=== PATIENT | male | born 1960 | race Caucasian/White ===

== ENCOUNTER 2024-11-28 22:09 | Emergency (ER) | payer OTHER, SELFPAY ==
--- NOTE | 2024-11-28 22:17 | ECG_ITS ---
APPROVED REPORT Exam: Resting ECG HR:96 bpm ECG Measurements Heart Rate 96 AXES WV 141 P 2 QRSd 130 QRS 126 QT 352 T 34 QTc 405 Conclusion Sinus rhythm Right bundle branch block Normal axis Electronically signed by : NAT CHENG, 11/29/2024 18:25:22
[2024-11-28 22:20] VITALS: BP 113/84; PULSE 99; RESP 16; TEMP 37.2; O2SAT 96; BMI 21.7
[2024-11-28 22:30] VITALS: BP 102/83; PULSE 99; RESP 14; O2SAT 97
--- NOTE | 2024-11-28 22:36 | CT_ITS ---
PROCEDURE INFORMATION: Exam: CT Head Without Contrast Exam date and time: 11/28/2024 10:49 PM Age: 64 years old Clinical indication: Altered mental status/memory loss; Additional info: AMS, confusion chronic ethanol abuse TECHNIQUE: Imaging protocol: Computed tomography of the head without contrast. Radiation optimization: All CT scans at this facility use at least one of these dose optimization techniques: automated exposure control; mA and/or kV adjustment per patient size (includes targeted exams where dose is matched to clinical indication); or iterative reconstruction. COMPARISON: No relevant prior studies available. FINDINGS: Brain: There is no acute intracranial hemorrhage, cerebral edema, or midline shift. Age-related cerebral and cerebellar volume loss is present. Mild chronic small vessel ischemic disease is noted in the cerebral white matter. Cerebral ventricles: No hydrocephalus. Paranasal sinuses: Mild mucosal thickening is noted in the right maxillary and ethmoid sinuses. Mastoid air cells: Visualized mastoid air cells are well aerated. Orbital cavities: The visualized orbits appear unremarkable. Bones: Unremarkable. No acute fracture. Soft tissues: A right forehead lipoma is present. IMPRESSION: No acute intracranial abnormality.
--- OUTSIDE RECORDS SUMMARY | 2024-11-28 22:43 | XMS_ITS | Clinical Summary ---
Author Organization [facility] Address [address] [place] [address] Phone Care Team Providers Care Finished Goods Planner Name Role Phone Unavailable Primary Care Provider Unavailabl e Allergies No known active allergies Medications * This document contains information received from the source organization and may not represent a complete record from that organization. No known medications Active Problems No known active problems Medical History Medical History Date Comments Stroke (HCC) Social History Tobacco Use Types Packs/Day Years Used Date Smoking Tobacco: Every Day Cigarettes 1.5 42.5 Started: 06/15/1982 Smokeless Tobacco: Never Tobacco Cessation:Ready to Q uit: Not Asked; Counseling Given: Not Answered Alcohol Use Standard Drinks/Week Comments Yes 0 (1 standard drink = 0.6 oz pur e alcohol) 6 pack of beer daily Sex and Gender Information Value Date Recorded Sex Assigned at Not on file Legal Sex Male 8:32 PM EST Gender Identity Not on file Sexual Orientation Not on file Obstetrics History Last Filed Vital Signs Vital Sign Reading Time Taken Comments Blood Pressure 129/91 04/21/2023 2:18 AM EST Pulse 100 04/21/2023 2:18 AM EST Temperature 36.7 C (98 F) 04/20/2023 7:22 PM EST Respiratory Rate 16 04/21/2023 2:18 AM EST Oxygen Saturation 99% 04/21/2023 2:18 AM EST Inhaled Oxygen Concentration - - Weight - - Height - - Body Mass Index - - Plan of Treatment Health Maintenance Due Date Last Done Comments Annual Wellness Exam 1965 Hepatitis C Screening 1980 Cologuard 2007 Colon Cancer Screening 2007 Colonoscopy 2007 FIT 2007 Sigmoidoscopy 2007 Virtual Colonography 2007 Low Dose Lung Cancer Screening 2012 Zoster (1 of 2) 2012 Pneumococcal Vaccine 50+ (2 of 2 - PCV) 08/13/2017 08/13/2016 COVID-19 Vaccine (2023-2 5 season) 2024 Influenza Vaccine (Season Ended) 2025 07/07/2017, 08/13/2016, 09/06/2015 DTaP/TDaP/Td (2 - Td or Tdap) 09/05/2025 09/06/2015 Hepatitis B Vaccine Aged Out No longe r eligible based on patient's age to complete this topic Meningococcal B Vaccine Aged Out No l onger eligible based on patient's age to complete this topic
[2024-11-28 22:46] LABS: Albumin Level 3.6 g/dl (3.5-5.0); Chloride 107 mmol/L (98-107); Potassium 4.3 mmoL/L (3.5-5.1); Sodium 137 mmol/L (136-145)
[2024-11-28 22:48] LABS: Basophils # 0.1 K/mm3 (0-0.2); Basophils % 1.1 % (0.1-2.0); Eosinophils # 0.1 Kmm3 (0.0-0.4); Eosinophils % 1.5 % (0.1-12.0); Hematocrit 53.5 % (42.0-52.0); Hemoglobin 17.6 g/dL (14.1-18.0); Immature Granulocytes # 0.01 10^3uL; Immature Granulocytes % 0.2 %; Lymphocytes # 2.1 K/mm3 (0.7-4.5); Lymphocytes % 39.8 % (10-50); Mean Corpuscular HGB Conc 32.9 g/dL (31.8-35.4); Mean Corpuscular Hemoglobin 31.5 pg (27.0-31.2); Mean Corpuscular Volume 95.7 fl (80-94); Mean Platelet Volume 9.5 fl (7.4-10.4); Monocytes # 0.7 K/mm3 (0.1-1.0); Monocytes % 12.3 % (1.7-9.3); Neutrophils # 2.4 K/mm3 (1.8-7.8); Neutrophils % 45.1 % (37.0-80.0); Nucleated Red Blood Cells # 0 10^3/uL; Nucleated Red Blood Cells % 0 %; Platelet Count 165 K/mm3 (142-424); Red Blood Count 5.59 M/mm3 (4.60-6.20); Red Cell Distribution Width 14.6 % (11.5-17.5); Red Cell Distribution Width-SD 50.9 fL; White Blood Count 5.4 K/mm3 (4.8-10.8)
[2024-11-28] MEDS: MVI, ADULT NO.1 WITH VIT K 10 ML, THIAMINE HCL 100 MG, MAGNESIUM SULFATE 2 GM in LACTAT... 500 ML IV (22:48)
[2024-11-28 22:49] LABS: Alanine Aminotransferase 17 U/L (12-78); Albumin/Globulin Ratio 1.3 (1.1-1.8); Alkaline Phosphatase 104 U/L (38-126); Anion Gap 7.3 mEq/L (5-15); Aspartate Amino Transferase 36 U/L (17-59); Bilirubin,Total 0.6 mg/dl (0.2-1.3); Blood Urea Nitrogen 3 mg/dl (9-20); Calcium 8.6 mg/dl (8.4-10.2); Carbon Dioxide 27 mmol/L (22.0-30.0); Creatinine Clearance Estimated 81 mL/min (50-200); Estimated Glomerular Filt Rate 86 ml/min (>60); GFR (African American) 103 ML/MIN (>60); Globulin 2.7 g/dL (1.3-3.2); Glucose 92 mg/dl (74-100); Total Protein,Serum 6.3 g/dl (6.3-8.2)
--- NOTE | 2024-11-28 22:50 | ED_ITS ---
Discharge Plan Disposition Patient Disposition: Home, Self-Care Condition: Good Prescriptions Prescriptions: New chlordiazepoxide HCl 25 mg capsule See Rx Instructions .ROUTE .COMPLEX Qty: 15 0RF Rx Instructions: Day 1: 50mg every 6 hours Day 2: 25mg every 6 hours Day 3: 25mg every 12 hours Day 4: 25mg at night (Rx 15x 25mg tabs) Max 300mg per 24 hours Referrals Follow up/Referrals: Provider,MD Mg [Primary Care Provider, Medical] - See instructions Keith Lange MD [Staff Physician, Family Practice] - See instructions Activity Restrictions/Add. Instructions Additional Instructions/Restrictions: Call Dr. Lange's office in order to establish care. Call your family doctor to establish care for this visit to the emergency department and schedule follow-up within 48 hours to ensure improvement. Take the prescribed medications as directed. Return to the ER with any new, worsening, or otherwise concerning symptoms. Clinical Impressions Clinical Impression: Acute confusion, Alcohol withdrawal Print Language Print Language: Salvadorean Discharge ED Provider: Munir Escobar General Adult HPI <Munir Escobar MD - Last Filed: 11/28/24 23:12> General Chief complaint: Weakness Stated complaint: Confused Time Seen by Provider: 11/28/24 22:17 Mode of Arrival: Ambulatory Source of Information: Patient and Relative Description of Symptoms (Recalled from ER Triage Doc. by RN): pt presents for evaluation of worsening confusion that began approx 3 hours ago. Family at the bedside reports recent bought of depression with alcohol use stating beer everyday reports no liquor use for approx 1 year. Pt reports CVA approx 5-6 years ago. Family states he hasn't bathed in 2 months I think he may have a UTI or is dehydrated Pt reports marijuana use with THC gummies taken from the local [email or web address] station approx 1400 today History of Present Illness HPI narrative: Please note that above description of symptoms, in this electronic medical record under categorization of recalled from ER triage doctor by RN are reflective of an initial nursing assessment, however, is not reflective of my full history and physical exam that was personally taken and clarified. Consequentially, this preceding description of symptoms, which may include the patient's categorized chief complaint in the EMR, do not reflect my personal clinical impression, and the ultimate description of history of present illness and patient stated complaints should be deferred to this section of the note. Unless stated otherwise or congruent with this section of the note, additional signs, symptoms, or incongruence should be interpreted as inaccurate with my clinical impression. Related Data Previous Rx's ?Medication ?Instructions ?Recorded chlordiazepoxide HCl 25 mg capsule See Rx Instructions .Route 11/28/24 .COMPLEX #15 caps Allergies Allergy/AdvReac Type Severity Reaction Status Date / Time No Known Allergies Allergy Verified 11/28/24 22:26 [facility] <Munir Escobar MD - Last Filed: 11/28/24 23:12> [facility] Disclaimer: The information contained in this section may have been updated after the patient was seen, as this information can be updated by other users. Social History (Updated 11/28/24 @ 23:12 by Munir Escobar MD) Smoking Status: Current every day smoker alcohol intake: current current occupational status: unemployed Travel in the last 8 weeks?: None Have you lived/traveled outside US in past 30 days?: No Contact w/someone who lives/traveled outside US past 30 days?: No Exposure to someone with infectious disease in past 14 days?: No Do you have a fever (greater than 100.4 F or 38 C)?: No Have you tested positive for COVID-19?: No Exposed to someone with COVID-19 in past 14 days?: No Do you have a sore throat?: No Do you have a cough?: No Do you have any weakness?: No Do you have any diarrhea?: No Are you experiencing any unusual bleeding?: No Do you have any muscle aches/pain?: No Do you have any abdominal pain?: No Are you experiencing loss of taste or smell?: No <Munir Escobar MD - Last Filed: 11/28/24 23:12> ROS Obtained: Yes All systems reviewed & no additional complaints except as documented Physical Exam <Munir Escobar MD - Last Filed: 11/28/24 23:12> General General appearance: alert, in no apparent distress and other (Chronically ill) Head Head exam: atraumatic and normocephalic Eye Eye exam: Present normal appearance, PERRL and EOMI Neck Neck exam: Present normal inspection, full ROM and trachea midline Respiratory Respiratory exam: Absent respiratory distress, wheezes, stridor, accessory muscle use or prolonged expiratory phase Cardiovascular Cardiovascular exam: Present regular rate, normal rhythm and other (Pulses equal symmetric in upper and lower extremities) Abdominal Exam Abdominal exam: Present soft; Absent distention, tenderness or pulsatile mass Extremities Exam Extremities exam: Absent edema Neurological Exam Neurological exam: Present alert, oriented X3 and CN II-XII intact; Absent motor sensory deficit Skin Skin exam: Present warm and dry; Absent diaphoresis or erythema Medical Decision Making <Munir Escobar MD - Last Filed: 11/28/24 23:12> Medical Records Medical records reviewed: Yes I reviewed the patient's medical records. Screening: Per USPSTF and CDC recommendations, given the prevalence of disease in our region, it is our hospital?s policy to screen for HIV and viral Hepatitis for all patients aged 18 and over and those with ongoing risk factors. Joseph Inquiry Pt receiving controlled substance: No Joseph was queried for this patient: No Vital Signs: 11/28/24 22:20 11/28/24 22:30 11/28/24 23:00 Temperature 98.9 F Temperature Source Oral Pulse Rate 99 H 91 H Pulse Rate [Radial] 99 H Respiratory Rate 16 14 13 Blood Pressure 102/83 L 113/76 Blood Pressure [Right Arm] 113/84 Blood Pressure Mean [Right Arm] 93 Blood Pressure Position [Right Arm] Sitting 02 Sat by Pulse Oximetry 96 97 97 Oxygen Delivery Method Room Air 11/28/24 23:30 11/29/24 00:00 11/29/24 00:19 Temperature 97.9 F Temperature Source Oral Pulse Rate 91 H 84 91 H Pulse Rate [Radial] Respiratory Rate 13 16 Blood Pressure 106/76 L 107/77 L 107/77 L Blood Pressure [Right Arm] Blood Pressure Mean [Right Arm] Blood Pressure Position [Right Arm] 02 Sat by Pulse Oximetry 95 96 Oxygen Delivery Method Room Air Lab Data Lab Results 11/28/24 22:19: WBC 5.4, RBC 5.59, Hgb 17.6, Hct 53.5 H, MCV 95.7 H, MCH 31.5 H, MCHC 32.9, RDW 14.6, Plt Count 165, MPV 9.5, Neut % (Auto) 45.1, Lymph % (Auto) 39.8, Person % (Auto) 12.3 H, Eos % (Auto) 1.5, Baso % (Auto) 1.1, Neut # (Auto) 2.4, Lymph # (Auto) 2.1, Person # (Auto) 0.7, Eos # (Auto) 0.1, Baso # (Auto) 0.1, Sodium 137, Potassium 4.3, Chloride 107, Carbon Dioxide 27, Anion Gap 7.3, BUN 3 L, Creatinine 0.90, Estimated Creat Clear 81, Estimated GFR 86, Est GFR ( Amer) 103, Glucose 92, Calcium 8.6, Total Bilirubin 0.6, AST 36, ALT 17, Alkaline Phosphatase 104, Total Protein 6.3, Albumin 3.6, Globulin 2.7, Albumin/Globulin Ratio 1.3, Plasma/Serum Alcohol 56 H 11/28/24 23:17: Urine Color Yellow, Urine Appearance Clear, Urine pH 6.0, Ur Specific [place] 1.015, Urine Protein Negative, Urine Glucose (UA) Negative, Urine Ketones Negative, Urine Blood Negative, Urine Nitrate Negative, Urine Bilirubin Negative, Urine Urobilinogen 0.2, Ur Leukocyte Esterase Negative, Ur Squamous Epith Cells Occasional 11/28/24 23:19: Urine Opiates Screen Negative, Urine Methadone Screen Positive H , Ur Barbituates Screen Negative, Ur Phencyclidine Scrn Negative, Ur Amphetamines Screen Negative, U Benzodiazepines Scrn Negative, Urine Cocaine Screen Negative, U Marijuana (THC) Screen Positive H 11/28/24 22:19 11/28/24 22:19 Orders (Tests/Meds): ED MEDICATIONS Discontinued Medications Generic Name Dose Route Start Last Admin Trade Name Freq PRN Reason Stop Dose Admin Chlordiazepoxide HCl 50 mg 11/28/24 22:38 11/28/24 22:43 Chlordiazepoxide 25mg Capsule PO 11/28/24 22:39 50 mg ONCE ONE Administration Multivitamins 10 ml/ Thiamine 1,015 mls @ 500 mls/hr 11/28/24 22:36 11/28/24 22:48 HCl 100 mg/ Magnesium Sulfate IV 11/29/24 00:37 500 mls/hr 2 gm/ Lactated Ringer's .Q2H2M ONE Administration ORDERS Category Date Time Status CT head/brain wo con Stat Cat Scan 11/28/24 22:36 Completed CBC w/Auto Diff [Complete Blood Count Auto Diff] Stat Lab 11/28/24 22:19 Completed CMP [Comprehensive Metabolic Panel] Stat Lab 11/28/24 22:19 Completed Ethanol [Ethyl Alcohol] Stat Lab 11/28/24 22:19 Completed UA [Urinalysis and Microscopic] Stat Lab 11/28/24 23:17 Completed UDS [Drug Screen,Urine] Stat Lab 11/28/24 23:19 Completed Medical Decision Narrative: 64-year-old male presenting with altered mental status intermittent. States that this has been going on since today. States examples such as putting something in the microwave, being sure that he cooked it, then being unable to find it. He is not sure if he took that or not or if it ever exists in the first place. states that he may be hallucinating as he states that he remembered taking out the trash, trash was never taken out. Also states that he remembered seeing someone on bikes riding by when he took the trash out, she thinks he is hallucinating. Patient denies responding to internal stimuli or seeing things that are not truly there. Not currently having any symptoms. States that he is also having troubles with his memory. No unilateral weakness, slurred speech, strokelike symptoms, chest pain, shortness of breath. States that he is ready to detox from alcohol. He typically drinks 318 packs of beer a week, has only had 2 beers in the last 24 hours. Does feel similar to withdrawal as he is try to taper himself off. Patient does state that he has been buying methadone off the street due to previous addiction and uses THC, otherwise has not used any other meds or drugs. History obtained with patient and significant other. On arrival, the clinically well. Mildly tachycardic, normotensive. Lungs are clear, cardiac exam without murmurs gallops or rubs. Neurologically intact including cranial nerves, cerebellar, motor and sensory exam. Psychiatric exam normal. Differential includes metabolic abnormality, endocrinologic abnormality, withdrawal, intoxication, among others. Initial labs independently interpreted, nonactionable CBC or chemistry. Ethanol level 56. EKG sinus rhythm 96 bpm with IA 141, QRS 130, QTc 405 with right bundle branch block morphology and no acute ischemic changes patient was given rally pack and Librium. CT head independently interpreted, no obvious intracranial hemorrhage or intracranial abnormality, prior to final read, reevaluation, and UA, care handed off to oncoming physician. Dam Worker disclaimer Much of this encounter note is an electronic welder plastic spoken language to printed text. Electronic welder plastic of the spoken language may permit errors. Although I have reviewed the note, some errors may still exist. <Miller Garcia MD - Last Filed: 11/29/24 00:48> Vital Signs: 11/28/24 22:20 11/28/24 22:30 11/28/24 23:00 Temperature 98.9 F Temperature Source Oral Pulse Rate 99 H 91 H Pulse Rate [Radial] 99 H Respiratory Rate 16 14 13 Blood Pressure 102/83 L 113/76 Blood Pressure [Right Arm] 113/84 Blood Pressure Mean [Right Arm] 93 Blood Pressure Position [Right Arm] Sitting 02 Sat by Pulse Oximetry 96 97 97 Oxygen Delivery Method Room Air 11/28/24 23:30 11/29/24 00:00 11/29/24 00:19 Temperature 97.9 F Temperature Source Oral Pulse Rate 91 H 84 91 H Pulse Rate [Radial] Respiratory Rate 13 16 Blood Pressure 106/76 L 107/77 L 107/77 L Blood Pressure [Right Arm] Blood Pressure Mean [Right Arm] Blood Pressure Position [Right Arm] 02 Sat by Pulse Oximetry 95 96 Oxygen Delivery Method Room Air Lab Data Lab Results 11/28/24 22:19: WBC 5.4, RBC 5.59, Hgb 17.6, Hct 53.5 H, MCV 95.7 H, MCH 31.5 H, MCHC 32.9, RDW 14.6, Plt Count 165, MPV 9.5, Neut % (Auto) 45.1, Lymph % (Auto) 39.8, Person % (Auto) 12.3 H, Eos % (Auto) 1.5, Baso % (Auto) 1.1, Neut # (Auto) 2.4, Lymph # (Auto) 2.1, Person # (Auto) 0.7, Eos # (Auto) 0.1, Baso # (Auto) 0.1, Sodium 137, Potassium 4.3, Chloride 107, Carbon Dioxide 27, Anion Gap 7.3, BUN 3 L, Creatinine 0.90, Estimated Creat Clear 81, Estimated GFR 86, Est GFR ( Amer) 103, Glucose 92, Calcium 8.6, Total Bilirubin 0.6, AST 36, ALT 17, Alkaline Phosphatase 104, Total Protein 6.3, Albumin 3.6, Globulin 2.7, Albumin/Globulin Ratio 1.3, Plasma/Serum Alcohol 56 H 11/28/24 23:17: Urine Color Yellow, Urine Appearance Clear, Urine pH 6.0, Ur Specific [place] 1.015, Urine Protein Negative, Urine Glucose (UA) Negative, Urine Ketones Negative, Urine Blood Negative, Urine Nitrate Negative, Urine Bilirubin Negative, Urine Urobilinogen 0.2, Ur Leukocyte Esterase Negative, Ur Squamous Epith Cells Occasional 11/28/24 23:19: Urine Opiates Screen Negative, Urine Methadone Screen Positive H , Ur Barbituates Screen Negative, Ur Phencyclidine Scrn Negative, Ur Amphetamines Screen Negative, U Benzodiazepines Scrn Negative, Urine Cocaine Screen Negative, U Marijuana (THC) Screen Positive H Orders (Tests/Meds): ED MEDICATIONS Discontinued Medications Generic Name Dose Route Start Last Admin Trade Name Freq PRN Reason Stop Dose Admin Chlordiazepoxide HCl 50 mg 11/28/24 22:38 11/28/24 22:43 Chlordiazepoxide 25mg Capsule PO 11/28/24 22:39 50 mg ONCE ONE Administration Multivitamins 10 ml/ Thiamine 1,015 mls @ 500 mls/hr 11/28/24 22:36 11/28/24 22:48 HCl 100 mg/ Magnesium Sulfate IV 11/29/24 00:37 500 mls/hr 2 gm/ Lactated Ringer's .Q2H2M ONE Administration ORDERS Category Date Time Status CT head/brain wo con Stat Cat Scan 11/28/24 22:36 Completed CBC w/Auto Diff [Complete Blood Count Auto Diff] Stat Lab 11/28/24 22:19 Completed CMP [Comprehensive Metabolic Panel] Stat Lab 11/28/24 22:19 Completed Ethanol [Ethyl Alcohol] Stat Lab 11/28/24 22:19 Completed UA [Urinalysis and Microscopic] Stat Lab 11/28/24 23:17 Completed UDS [Drug Screen,Urine] Stat Lab 11/28/24 23:19 Completed Medical Decision Narrative: 64-year-old male presenting with altered mental status intermittent. States that this has been going on since today. States examples such as putting something in the microwave, being sure that he cooked it, then being unable to find it. He is not sure if he took that or not or if it ever exists in the first place. states that he may be hallucinating as he states that he remembered taking out the trash, trash was never taken out. Also states that he remembered seeing someone on bikes riding by when he took the trash out, she thinks he is hallucinating. Patient denies responding to internal stimuli or seeing things that are not truly there. Not currently having any symptoms. States that he is also having troubles with his memory. No unilateral weakness, slurred speech, strokelike symptoms, chest pain, shortness of breath. States that he is ready to detox from alcohol. He typically drinks 318 packs of beer a week, has only had 2 beers in the last 24 hours. Does feel similar to withdrawal as he is try to taper himself off. Patient does state that he has been buying methadone off the street due to previous addiction and uses THC, otherwise has not used any other meds or drugs. History obtained with patient and significant other. On arrival, the clinically well. Mildly tachycardic, normotensive. Lungs are clear, cardiac exam without murmurs gallops or rubs. Neurologically intact including cranial nerves, cerebellar, motor and sensory exam. Psychiatric exam normal. Differential includes metabolic abnormality, endocrinologic abnormality, withdrawal, intoxication, among others. Initial labs independently interpreted, nonactionable CBC or chemistry. Ethanol level 56. EKG sinus rhythm 96 bpm with IA 141, QRS 130, QTc 405 with right bundle branch block morphology and no acute ischemic changes patient was given rally pack and Librium. CT head independently interpreted, no obvious intracranial hemorrhage or intracranial abnormality, prior to final read, reevaluation, and UA, care handed off to oncoming physician. Dam Worker disclaimer Much of this encounter note is an electronic welder plastic spoken language to printed text. Electronic welder plastic of the spoken language may permit errors. Although I have reviewed the note, some errors may still exist. Garcia: Upon my assumption of care patient is stable and resting comfortably. GCS 15. I agree with the assessment and plan from Dr. Escobar. CT does not demonstrate any acute intracranial abnormality. UA negative for findings of infection, UDS positive for methadone and THC to which patient admits. On reassessment he remains stable, mentating well, GCS 15 with no neurologic deficits. I spent extensive time counseling and educating the patient on alcohol and other illicit substance cessation as well as the risks of obtaining drugs like methadone from the street and Gummies in the gas station since they are unregulated. Patient understands and has a goal of quitting. Patient was referred to Dr. Lange for family medicine follow-up. Dr. Escobar had already prescribed Librium to the patient. He is tolerating oral intake and independently ambulatory through the ER. He is appropriate for discharge at this time. Patient was given instructions on symptomatic management, follow up instructions, and return precautions for the emergency department. Patient indicated understanding and was discharged in stable condition. Critical Care <Munir Escobar MD - Last Filed: 11/28/24 23:12> Critical Care Time Critical Care Time: No
--- NOTE | 2024-11-28 22:57 | PC.NURSE ---
pt resting in bed, NAD noted, RR even and non labored, skin pwd, side rails up x2, call light within reach
[2024-11-28 23:00] VITALS: BP 113/76; PULSE 91; RESP 13; O2SAT 97
[2024-11-28 23:01] LABS: Ethyl Alcohol 56 mg/dl (0-10)
[2024-11-28 23:23] LABS: Microscopic, Urine URINE MICROSCOPIC (MICROSCOPIC)
[2024-11-28 23:30] VITALS: BP 106/76; PULSE 91; O2SAT 95
[2024-11-28 23:50] LABS: Appearance,Urine CLEAR (Clear); Bilirubin,Urine Negative (Negative); Blood, Urine Negative (Negative); Color,Urine YELLOW (Yellow); Glucose,Urine (UA) Negative (Negative); Ketones,Urine Negative (Negative); Leukocyte Esterase,Urine Negative (Negative); Nitrate,Urine Negative (Negative); Protein,Urine Negative (Negative); Specific Gravity, Urine 1.015 (1.005-1.030); Urobilinogen,Urine 0.2 EU/dl (0.2)
[2024-11-29] VITALS: BP 107/77; PULSE 84; RESP 13; O2SAT 96
[2024-11-29] LABS: Barbiturates Screen,Urine Negative ng/ml (<200)
[2024-11-29 00:01] LABS: Benzodiazepines Screen,Urine Negative ng/ml (<200)
[2024-11-29 00:02] LABS: Amphetamine/Metha Screen,Urine Negative ng/ml (<1000); Cannabinoid Screen,Urine Positive ng/ml (<50)
[2024-11-29 00:03] LABS: Cocaine Screen,Urine Negative ng/ml (<300); Methadone Screen,Urine Positive ng/ml (<300)
[2024-11-29 00:04] LABS: Opiate Screen,Urine Negative ng/ml (<300)
[2024-11-29 00:05] LABS: Phencyclidine Screen,Urine Negative ng/ml (<25)
[2024-11-29 00:13] LABS: Squamous Epithelial Cell,Urine Occasional #/hpf (0-5)
[2024-11-29 00:19] VITALS: BP 107/77; PULSE 91; RESP 16; TEMP 36.6; O2SAT 95
== END 2024-11-29 00:32 | disposition home or self-care (01) ==
PROVIDERS: Emergency Provider Emergency Medicine
DX: F10.131 Alcohol abuse with withdrawal delirium (principal); R41.0 Disorientation, unspecified; F17.210 Nicotine dependence, cigarettes, uncomplicated
CPT/HCPCS: 70450; 80053; 80307; 80320; 81001; 85025; 93005; 96365; 96366; 99285; J3411; J3475; J7120

== ENCOUNTER 2024-12-07 15:57 | Outpatient (CLI) | payer OTHER, SELFPAY ==
--- OUTSIDE RECORDS SUMMARY | 2024-12-07 16:00 | XMS_ITS | Clinical Summary ---
Author Organization [facility] Address [address] [place] [address] Phone Care Team Providers Care Plsql Developer Name Role Phone Unavailable Primary Care Provider [...]
--- NOTE | 2024-12-07 16:01 | XR_ITS ---
FINAL REPORT CLINICAL HISTORY: pain FINDINGS: RIGHT KNEE Three views were obtained. There is no fracture or dislocation. The joint spaces appear normal. Note is made of underlying osteopenia. No soft tissue abnormality is identified. IMPRESSION: No acute process. Reviewed, Interpreted and Dictated by Willa Estevez MD Transcribed by Abigail Schwarz Authenticated and [facility]
--- NOTE | 2024-12-07 16:01 | XR_ITS ---
FINAL REPORT CLINICAL HISTORY: pain FINDINGS: LEFT KNEE Three views were obtained. There is no fracture or dislocation. The joint spaces appear normal. Note is made of underlying osteopenia. No soft tissue abnormality is identified. IMPRESSION: No acute process. Reviewed, Interpreted and Dictated by Willa Estevez MD Transcribed by Abigail Schwarz Authenticated and [facility]
--- NOTE | 2024-12-07 16:01 | XR_ITS ---
FINAL REPORT CLINICAL HISTORY: low back pain FINDINGS: LUMBAR SPINE Three views were obtained. There is no acute fracture. There is moderate diffuse degenerative disc disease. Mild facet arthropathy is identified. There is minimal retrolisthesis of L2 on 3 and L3 on 4. IMPRESSION: Moderate degenerative changes without acute fracture. Reviewed, Interpreted and Dictated by Willa Estevez MD Transcribed by Abigail Schwarz Authenticated and [facility]
[2024-12-07 18:17] LABS: Basophils # 0.1 K/mm3 (0-0.2); Basophils % 1.4 % (0.1-2.0); Eosinophils # 0.1 Kmm3 (0.0-0.4); Eosinophils % 1.4 % (0.1-12.0); Hemoglobin 17.9 g/dL (14.1-18.0); Immature Granulocytes # 0.01 10^3uL; Immature Granulocytes % 0.2 %; Lymphocytes # 1.7 K/mm3 (0.7-4.5); Lymphocytes % 30.7 % (10-50); Mean Corpuscular HGB Conc 32.5 g/dL (31.8-35.4); Mean Corpuscular Hemoglobin 30.7 pg (27.0-31.2); Mean Corpuscular Volume 94.2 fl (80-94); Mean Platelet Volume 10.2 fl (7.4-10.4); Monocytes # 0.8 K/mm3 (0.1-1.0); Monocytes % 14.3 % (1.7-9.3); Neutrophils # 2.9 K/mm3 (1.8-7.8); Nucleated Red Blood Cells # 0 10^3/uL; Nucleated Red Blood Cells % 0 %; Platelet Count 201 K/mm3 (142-424); Red Blood Count 5.84 M/mm3 (4.60-6.20); Red Cell Distribution Width 14.6 % (11.5-17.5); Red Cell Distribution Width-SD 50.7 fL; White Blood Count 5.5 K/mm3 (4.8-10.8)
[2024-12-07 19:09] LABS: Alanine Aminotransferase 24 U/L (12-78); Albumin Level 3.8 g/dl (3.5-5.0); Albumin/Globulin Ratio 1.4 (1.1-1.8); Alkaline Phosphatase 131 U/L (38-126); Anion Gap 10.3 mEq/L (5-15); Aspartate Amino Transferase 35 U/L (17-59); Bilirubin,Total 0.6 mg/dl (0.2-1.3); Blood Urea Nitrogen 5 mg/dl (9-20); Calcium 9.4 mg/dl (8.4-10.2); Carbon Dioxide 24 mmol/L (22.0-30.0); Chloride 102 mmol/L (98-107); Chol/HDL Ratio 1.9 (1-3.5); Cholesterol 199 mg/dl (140-200); Estimated Glomerular Filt Rate 137 ml/min (>60); GFR (African American) 165 ML/MIN (>60); Globulin 2.8 g/dL (1.3-3.2); Glucose 112 mg/dl (74-100); HDL Cholesterol 106 mg/dl (40-60); Potassium 4.3 mmoL/L (3.5-5.1); Sodium 132 mmol/L (136-145); Total Protein,Serum 6.6 g/dl (6.3-8.2); Triglycerides 109 mg/dl (30-150); VLDL Cholesterol 22 mg/dL (0-40)
[2024-12-07 19:20] LABS: Direct LDL Cholesterol 60.56 mg/dL (100-129)
[2024-12-07 19:31] LABS: Free Thyroxine Index 2.4 ug/dL (5.93-13.13); T4 (Thyroxine) 6.2 ug/dl (5.53-11.0); Triiodothryronine (T3) Uptake 39 % (23.5-40.5)
[2024-12-07 19:39] LABS: Prostate Specific Ag Screen 4.2 ng/ml (0.0-4.0)
[2024-12-07 19:45] LABS: Thyroid Stimulating Hormone 0.86 uIU/mL (0.465-4.68)
[2024-12-07 19:58] LABS: Vitamin B12 474 pg/mL (239-931)
[2024-12-07 20:40] LABS: HIV Combo NEGATIVE (Negative)
[2024-12-07 20:46] LABS: Hepatitis C Ab Qual. W/ RFX NEGATIVE (Negative)
[2024-12-09 10:29] LABS: Hepatitis B Surface Antigen Negative (Negative)
[2024-12-09 11:34] LABS: Testosterone,Total 574 ng/dL (264-916)
== END 2024-12-07 23:59 | disposition home or self-care (01) ==
LOC: RAD 15:58
PROVIDERS: PCP Family Medicine; Visit Provider Family Medicine
DX: Z00.00 Encounter for general adult medical examination without abnormal findings (principal); M47.816 Spondylosis without myelopathy or radiculopathy, lumbar region; M25.569 Pain in unspecified knee
CPT/HCPCS: 72100; 73562; 80053; 80061; 80074; 82607; 84403; 84436; 84443; 84479; 85025; 87340; 87389; G0103

== ENCOUNTER 2024-12-21 08:07 | Outpatient (CLI) | payer OTHER, SELFPAY ==
--- OUTSIDE RECORDS SUMMARY | 2024-12-21 08:10 | XMS_ITS | Clinical Summary ---
Author Organization [facility] Address [address] [place] [address] Phone Care Team Providers Care Wood Router Hand Name Role Phone Unavailable Primary Care Provider [...] 2 - PCV) 08/13/2017 08/13/2016 COVID-19 Vaccine ( - 2023-2 5 season) 2024 Influenza Vaccine (#1) 2025 8, 08/13/2016, 09/06/2015 DTaP/TDaP/Td (2 - Td or Tdap) 09/05/2025 09/06/2015 Hepatitis B Vaccine Aged Out No longe r eligible based on patient's age to complete this topic Meningococcal B Vaccine Aged Out No l onger eligible based on patient's age to complete this topic
--- NOTE | 2024-12-21 10:00 | US_ITS ---
FINAL REPORT CLINICAL HISTORY: food intolerance COMPARISON: None FINDINGS: Sonographic images of the right upper quadrant were obtained. The pancreas is partially obscured. There is fatty infiltration of the liver. The gallbladder appears normal without evidence of gallstones.There is no evidence of biliary ductal dilatation.The common duct measures 4mm. Limited images of the right kidney are unremarkable. IMPRESSION: Fatty infiltration of the liver, without evidence of gallstones or biliary ductal dilatation. Reviewed, Interpreted and Dictated by Les Rayo MD Transcribed by Jolie Beckford Authenticated and [facility]
== END 2024-12-21 23:59 | disposition home or self-care (01) ==
LOC: RAD 08:08
PROVIDERS: PCP Family Medicine; Visit Provider Family Medicine
DX: K76.0 Fatty (change of) liver, not elsewhere classified (principal); K21.9 Gastro-esophageal reflux disease without esophagitis; R09.A2 Foreign body sensation, throat; R10.11 Right upper quadrant pain
CPT/HCPCS: 76705

== ENCOUNTER 2025-01-03 14:29 | Outpatient (CLI) | payer OTHER, SELFPAY ==
--- OUTSIDE RECORDS SUMMARY | 2025-01-03 14:35 | XMS_ITS | Clinical Summary ---
Author Organization 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
--- NOTE | 2025-01-03 14:45 | MR_ITS ---
FINAL REPORT TECHNIQUE: Multiplanar MR, without and with gadolinium enhancement CLINICAL HISTORY: back pain WITH BILATERAL LEG PAIN , NUMBNESS AND TINGLINGS X 30 YEARS NO RECENT INJURY FINDINGS: Sagittal images show normal vertebral height. There is normal retrolisthesis of L2 on L3. Alignment is otherwise normal. Marrow signal pattern is unremarkable. L1-2: Mild annular disc bulge. L2-3: Mild annular disc bulge. L3-4: Moderate annular disc bulge with mild canal stenosis and mild bilateral neuroforaminal narrowing. L4-5: L5-S1: Mild annular disc bulge with moderate left and mild right neuroforaminal narrowing. IMPRESSION: Mild to moderate degenerative changes as above. No evidence of high-grade canal stenosis or enhancing mass. Reviewed, Interpreted and Dictated by Willa Estevez MD Transcribed by Alexandrea Jones Authenticated and . [facility]
[2025-01-03] MEDS: GADOTERIDOL INJ 20ML SYRINGE 13 ML IV (15:40)
[2025-01-03] MEDS: SODIUM CHLORIDE 0.9% 10ML SYR (RAD ONLY) 10 ML IV (15:40)
== END 2025-01-03 23:59 | disposition home or self-care (01) ==
LOC: RAD 14:29
PROVIDERS: PCP Family Medicine; Visit Provider Family Medicine
DX: M47.816 Spondylosis without myelopathy or radiculopathy, lumbar region (principal)
CPT/HCPCS: 72158; A9576

== ENCOUNTER 2025-01-04 11:56 | Day surgery (SDC) | payer OTHER, SELFPAY ==
[2025-01-04] MEDS: LACTATED RINGERS 1000ML 1,000 ML 50 ML IV (12:13)
[2025-01-04 12:19] VITALS: BMI 19.5
[2025-01-04 12:21] VITALS: BP 116/80; PULSE 97; RESP 18; TEMP 36.3; O2SAT 97
--- NOTE | 2025-01-04 12:24 | SUR.PREOP ---
pt reported to this rn that he took 1/2 of a 600mg gabapentin tablet this morning. medication not listed on home medication list nor on external medication list. this rn did add it to home list strictly d/t pt reporting taking this medication. pt stated he had a prescription but does not know what happened to it
--- NOTE | 2025-01-04 13:13 | EXP.HP ---
History of Present Illness *Admission Date: 01/04/25 *History of present illness: Mr. Yee is a 64-year-old gentleman with dysphagia who is here for diagnostic/therapeutic EGD. The examination is deemed medically necessary for EGD. The patient has been seen, interviewed and examined prior to the procedure by both myself and the anesthesia provider. [facility] Disclaimer: The information contained in this section may have been updated after the patient was seen, as this information can be updated by other users. Medical History Cerumen impaction Liver disease Erectile dysfunction Surgical History H/O uvulectomy History of tonsillectomy and adenoidectomy History of hernia surgery History of appendectomy Family History (Updated 01/04/25 @ 12:10 by Omaira Cordero RN) Other No significant family history Social History Smoking Status: Current every day smoker alcohol intake: current substance use type: other details: methadone, gabapentin current occupational status: unemployed Travel in the last 8 weeks?: None Have you lived/traveled outside US in past 30 days?: No Contact w/someone who lives/traveled outside US past 30 days?: No Exposure to someone with infectious disease in past 14 days?: No Do you have a fever (greater than 100.4 F or 38 C)?: No Have you tested positive for COVID-19?: No Exposed to someone with COVID-19 in past 14 days?: No Do you have a sore throat?: No Do you have a cough?: No Do you have any weakness?: No Do you have any diarrhea?: No Are you experiencing any unusual bleeding?: No Do you have any muscle aches/pain?: No Do you have any abdominal pain?: No Are you experiencing loss of taste or smell?: No Review of Systems Review of Systems Review of systems (narrative): Negative *Cardiovascular Comments: Negative *Gastrointestinal Comments: Negative *Genitourinary Comments: Negative *Musculoskeletal Comments: Negative *Neurologic Comments: Negative Meds Home Medications and Allergies Home Medications ?Medication ?Instructions ?Recorded ?Confirmed ?Type hydroxyzine HCl 50 mg tablet 50 mg PO TID PRN anxiety #30 tabs 06/25/25 07/23/25 Rx sucralfate 1 gram tablet (Carafate) 1 g PO TID #30 tabs 12/14/24 01/04/25 Rx buspirone 10 mg tablet 10 mg PO TID #90 tabs 12/27/24 01/04/25 Rx lamotrigine 25 mg tablet (Lamictal) 25 mg PO DAILY #42 tabs 12/27/24 01/04/25 Rx gabapentin 600 mg tablet 600 mg PO DAILY PRN Pain 01/04/25 01/04/25 History New Prescriptions to Start Prescriptions: Allergies Allergy/AdvReac Type Severity Reaction Status Date / Time No Known Allergies Allergy Verified 01/02/25 11:19 Exam Data for Last 24 hours Vital signs and Labs for Last 24 Hours: Temp Pulse Resp BP Pulse Ox O2 Del Method 97.4 F L 97 H 18 116/80 97 Room Air 01/04/25 12:21 01/04/25 12:21 01/04/25 12:21 01/04/25 12:21 01/04/25 12:21 01/04/25 12:21 I & O for Last 24 hours: Intake & Output 01/01/25 01/02/25 01/03/25 01/04/25 23:59 23:59 23:59 23:59 Weight 148 lb *Routine HEENT Exam Head: Present normocephalic Eye: Present EOMI and PERRL ENT: Present mucous membranes moist *Routine Neck Exam Neck: Present supple *Routine Respiratory Exam Respiratory: Present CTA bilaterally *Routine Cardiovascular Exam Cardiovascular: Present RRR *Routine Abdominal Exam Abdominal: Present soft and normoactive bowel sounds; Absent tenderness *Routine Rectal Exam Rectal:: deferred *Routine Genitalia Exam Genitalia:: deferred *Routine Extremities Exam Extremities: Absent cyanosis, clubbing or edema *Routine Skin Exam Skin: Present warm; Absent rash *Routine Neurological Exam Neurological: Present alert and oriented X3 Assessment and Plan *Assessment and plan (1) GERD (gastroesophageal reflux disease): Status: Acute Category: Medical Code(s): K21.9 - Gastro-esophageal reflux disease without esophagitis (2) Dysphagia: Status: Acute Category: Medical Code(s): R13.10 - Dysphagia, unspecified (3) Regurgitation of food: Status: Acute Category: Medical Code(s): R11.10 - Vomiting, unspecified (4) Heartburn: Status: Acute Category: Medical Code(s): R12 - Heartburn Plan A/P: 1. Dysphagia in setting of heartburn and reflux is the preprocedural diagnosis. The patient has had regurgitation of food. The patient will be anesthetized/sedated using MAC sedation. The patient has been seen and examined. Cardiac and lung assessment prior to the examination is stable. Proceed with planned EGD.
--- NOTE | 2025-01-04 13:15 | HMH.PROCNOTE ---
[facility] Procedure Note Date: 01/04/25 Time: 13:30 Procedure Note:: Upper Endoscopy Procedure Report: Esophagogastroduodenoscopy with cold biopsies and TTS balloon dilation Endoscopost: Rome Loya II, MD Referring Physician: INES Khan Date of Procedure: January 04, 2025 Equipment: Olympus GIF-1100 standard upper endoscope Sedation: MAC sedation Indications: Mr. Yee is a 64-year-old gentleman who is here for diagnostic/therapeutic upper endoscopy secondary to heartburn, reflux and dysphagia. The patient does state that he has had intermittent swallowing difficulties over the last 4 to 5 years but this has markedly worsened over the last 2 to 3 months. He has lost 30 pounds in the last 6 weeks. He did have a bout of hematemesis 3 weeks ago. He has odynophagia and dysphagia and often has to regurgitate food content. He does have intermittent heartburn and reflux for which he takes Carafate. He was taking omeprazole. He has never had an upper endoscopy. He does get some epigastric abdominal pain below the sternum but also has retrosternal pain with swallowing. Procedure: Prior to the procedure, a history and physical exam was performed, and patient's medications and allergies were reviewed. The risks, benefits and alternatives of the sedation and procedure were discussed with the patient. All questions were answered and informed consent was obtained. The patient was brought to the procedure room. Patient identification and proposed procedure were verified by the physician and the nurse. The patient was placed in a left lateral decubitus position and the scope was passed under direct vision. Throughout the procedure, the patient's blood pressure, pulse, and oxygen saturations were monitored continuously. The upper GI endoscopy was accomplished without difficulty. The patient tolerated the procedure well. Findings: The scope was passed directly into the upper esophagus and advanced to the third and fourth portion of the duodenum. A cold biopsy was taken from the 2nd/3rd portion of duodenum for the disaccharidase assay. The post bulbar duodenum, ampulla and duodenal bulb were normal with normal mucosa and conniventes. There was very mild peptic duodenitis of the duodenal bulb. The scope was withdrawn through a normal pylorus into the stomach. There is mild antral gastropathy and mild chronic gastritis of the proximal stomach. Cold biopsies were taken from the lesser curvature to rule out H. pylori. Upon retroflexion, there was no hiatal hernia. The scope was then withdrawn into the esophagus. There was no evidence of reflux esophagitis or Thomas's. There was no Schatzki's ring, stricture, web, corrugation or furrowing. There was no esophageal varices or proximal esophageal inlet patch. There were strong tertiary contractions and evidence of moderate esophageal dysmotility. A cold biopsy was taken in the mid/distal esophagus to rule out EOE. The entire esophagus was dilated to 60 Hungarian/20 mm with a TTS hydrostatic balloon. There was mild resistance at the cricopharyngeus. The remainder of the esophageal mucosa was normal. Impression: 1. Nonerosive GERD with moderate esophageal dysmotility 2. Mild antral gastropathy and mild chronic gastritis Plan: I will follow-up the biopsies. I do feel the patient has esophageal dyskinesia/esophageal spasm. We will discuss treatment options.
--- NOTE | 2025-01-04 13:17 | EXP.ANES.CKL ---
[facility] Disclaimer: The information contained in this section may have been updated after the patient was seen, as this information can be updated by other users. Medical History Cerumen impaction Liver disease Erectile dysfunction Surgical History H/O uvulectomy History of tonsillectomy and adenoidectomy History of hernia surgery History of appendectomy Family History (Updated 01/04/25 @ 12:10 by Omaira Cordero RN) Other No significant family history Social History Smoking Status: Current every day smoker alcohol intake: current substance use type: other details: methadone, gabapentin current occupational status: unemployed Travel in the last 8 weeks?: None Have you lived/traveled outside US in past 30 days?: No Contact w/someone who lives/traveled outside US past 30 days?: No Exposure to someone with infectious disease in past 14 days?: No Do you have a fever (greater than 100.4 F or 38 C)?: No Have you tested positive for COVID-19?: No Exposed to someone with COVID-19 in past 14 days?: No Do you have a sore throat?: No Do you have a cough?: No Do you have any weakness?: No Do you have any diarrhea?: No Are you experiencing any unusual bleeding?: No Do you have any muscle aches/pain?: No Do you have any abdominal pain?: No Are you experiencing loss of taste or smell?: No [facility] Anesthesia Checklist Patient Identification Patient Identification: Arm Band Structural Data Admitted From: Home Planned Operative Procedure/s: EGD Consent for Planned Operative Procedure(s) Verified: Yes Verified Documents: Surgical Consent and History and Physical NPO Status Verified Time NPO: 00:00 Additional verifications Anesthesia Reactions: No Airway Assessment Mallampati Score:: Class II C-Spine Mobility Assessed: Yes TMJ Mobility Assessed: Yes Dentition: Poor Dentition Neurological Assessment Level of Consciousness: Awake, Alert and Appropriate Anesthesia Plan Anesthesia Risk discussed: Yes Anesthesia Plan: Verified ASA Class: III Anesthesia Type: MAC
[2025-01-04 13:33] VITALS: BP 96/70; PULSE 85; RESP 16; TEMP 36.3; O2SAT 95
[2025-01-04 13:43] VITALS: BP 94/67; PULSE 85; RESP 16; O2SAT 95
[2025-01-04 13:53] VITALS: BP 104/61; PULSE 86; RESP 18; O2SAT 96
[2025-01-04 14:00] VITALS: BP 101/82; PULSE 90; RESP 16; O2SAT 99
== END 2025-01-04 14:01 | disposition home or self-care (01) ==
PROVIDERS: PCP Family Medicine; Visit Provider Internal Medicine Gastroenterology
PROC: 0DJ08ZZ Inspection of Upper Intestinal Tract, Via Natural or Artificial Opening Endoscopic (ICD-10-PCS; CPT 43239; principal; 2025-01-04 14:00)
DX: K21.9 Gastro-esophageal reflux disease without esophagitis (principal); K29.50 Unspecified chronic gastritis without bleeding; K76.9 Liver disease, unspecified; F17.210 Nicotine dependence, cigarettes, uncomplicated; Z79.899 Other long term (current) drug therapy
CPT/HCPCS: 43239; 43249; 82657; C1726; J2003; J2704; J7120

== ENCOUNTER 2025-01-27 15:30 | Outpatient (CLI) | payer OTHER, SELFPAY ==
--- OUTSIDE RECORDS SUMMARY | 2025-01-30 12:14 | XMS_ITS | Clinical Summary ---
Author Organization [facility] Address [address] [place] [address] Phone Care Team Providers Care Public Relations Coordinator Name Role Phone Unavailable Primary Care Provider [...]
== END 2025-01-27 23:59 ==
LOC: LAB.DROPOF 01-30 12:12
PROVIDERS: PCP Nurse Practitioner Family; Visit Provider Nurse Practitioner Family
DX: R31.9 Hematuria, unspecified (principal)
CPT/HCPCS: 87086

== ENCOUNTER 2025-05-02 16:30 | Outpatient (CLI) | payer OTHER, SELFPAY ==
--- OUTSIDE RECORDS SUMMARY | 2025-04-12 14:45 | XMS_ITS | Encounter Summary ---
Author Organization [facility] ([place], [place], [place], [place], [place]) Address [address] [place] [address] Care Team Providers Care Bead Trimmer Name Role Phone [facility] Amber, Find-A-Doc Primary Care Provider Reason for Visit * Reason Comments Loss of Consciousness Pt reports fainti ng spells and shitting blood today Encounter Details Date Type Department Care Team (Late st Contact Info) Description 04/12/2025 3:45 PM EDT - 04/12/2025 5:36 PM EDT Emergency [facility] Emergency Department [address] [place] [address] Willy Cuevas H, DO [address] [place] [address] Syncope, unspecified syncope type (Primary Dx) Discharge Disposition: Home or Self Care Social History Tobacco Use Types Packs/Day Years Used Date Smoking Tobacco: Every Day Cigarettes Smokeless Tobacco: Never Tobacco Cessation:Ready to Q uit: Not Asked; Counseling Given: Not Answered Alcohol Use Standard Drinks/Week Comments Never 0 (1 standard drink = 0.6 oz pur e alcohol) Sex and Gender Information Value Date Recorded Sex Assigned at Not on file Legal Sex Male 2:37 PM CDT Gender Identity Not on file Sexual Orientation Not on file documented as of this encounter Last Filed Vital Signs Vital Sign Reading Time Taken Comments Blood Pressure 125/88 04/12/2025 5:35 PM EDT Pulse 86 04/12/2025 5:35 PM EDT Temperature 36.8 C (98.3 F) 04/12/2025 5:35 PM EDT Respiratory Rate 15 04/12/2025 5:35 PM EDT Oxygen Saturation 97% 04/12/2025 5:35 PM EDT Inhaled Oxygen Concentration - - Weight 63.5 kg (140 lb) 04/12/2025 3:42 PM EDT Height 182.9 cm (6') 04/12/2025 3:42 PM EDT Body Mass Index 18.99 04/12/2025 3:42 PM EDT documented in this encounter Discharge Instructions * Discharge Instructions* Willy Cuevas DO - 04/12/2025 5:36 PM EDT You were seen in the emergency room, thankfully your blood level is stable and I do not see evidence of any broken bones or air collecting around your lung. I would like you to follow-up with a primary care doctor regarding these episodes of syncope you have described, if you have any chest pain, this happens again, or other new symptoms develop please come back. * Attachments The following attachments cannot be sent through Care Everywhere. * Syncope Adult [id number] ([place]oz[place]) documented in this encounter ED Notes * Damian Dumont RN - 04/12/2025 5:36 PM EDT Called [facility] for transportation of patient back to their facility. Talked to manager construction, whom states she will send someone to come pick patient up. Damian Dumont RN 04/12/251806 * Willy Cuevas DO - 04/12/2025 3:42 PM EDT Subjective Chief Complaint: Loss of Consciousness (Pt reports fainting spells and shitting blood today ) Patient is a 64-year-old male presenting from [facility] rehab for medical evaluation. 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 States for the past couple weeks he has been having episodes of lightheadedness and syncope leading to falls. Says over the past couple days he has also been experiencing bright red blood with bowel movements. History provided by: Patient medical interpreter used: No Loss of Consciousness Associated symptoms: no chest pain, no fever, no headaches, no nausea, no palpitations, no shortness of breath and no vomiting Richard Yee is a 64 y.o. male with has a past medical history of Back pain. who is presenting with complaints of recent lightheadedness and syncope with falls. Patient states he presented from [facility] for medical evaluation in relation to recent lightheadedness and syncope. Patient has reportedly been having bright red blood per rectum during his last bowel movement as well. Patient states he has pain in his back as well as the left-sided ribs, states has been present since approximately a week and a half ago when he fell in the bathtub. He denies any current chest pain or shortness of breath. Patient denies any numbness or tingling. Patient is currently undergoing detoxification try to get off of methadone, last dose was yesterdaymorning. Patient History Past Medical History: Diagnosis Date Back pain Past Surgical History: Procedure Laterality Date APPENDECTOMY CHEST SURGERY HERNIA REPAIR No family history on file. Social History Tobacco Use Smoking status: Every Day Current packs/day: 1.00 Types: Cigarettes Smokeless tobacco: Never Substance Use Topics Alcohol use: Never I reviewed the HPI, ROS and PFSH documentation recorded by others in the medical record and supplemented my note as needed. Review of Systems Review of Systems Constitutional: Negative for chills and fever. HENT: Negative for congestion, ear pain, postnasal drip, rhinorrhea, sinus pain and sore throat. Eyes: Negative for pain, redness and visual disturbance. Respiratory: Negative for cough, shortness of breath and wheezing. Cardiovascular: Positive for syncope. Negative for chest pain and palpitations. Gastrointestinal: Positive for blood in stool. Negative for abdominal pain, constipation, diarrhea,nausea and vomiting. Genitourinary: Negative for difficulty urinating, dysuria and hematuria. Musculoskeletal: Negative for arthralgias, back pain, neck pain and neck stiffness. Skin: Negative for rash. Neurological: Positive for syncope and light-headedness. Negative for headaches. All other systems reviewed and are negative. Physical Exam ED Triage Vitals [04/12/25 1542] Encounter Vitals Group BP 116/83 Girls Systolic BP Percentile Girls Diastolic BP Percentile Boys Systolic BP Percentile Boys Diastolic BP Percentile Pulse 101 Resp 20 Temp 98 ??F (36.7 ??C) Temp src Oral SpO2 100 % Weight 63.5 kg (140 lb) Height 1.829 m (6') Head Circumference Peak Flow Pain Score Zero Pain Loc Pain Education Exclude from Growth Chart Physical Exam Vitals and nursing note reviewed. Constitutional: Appearance: Normal appearance. HENT: Head: Atraumatic. Nose: Nose normal. Mouth/Throat: Mouth: Mucous membranes are dry. Comments: Dentition is poor Eyes: Extraocular Movements: Extraocular movements intact. Pupils: Pupils are equal, round, and reactive to light. Cardiovascular: Rate and Rhythm: Regular rhythm. Tachycardia present. Heart sounds: Normal heart sounds. Pulmonary: Effort: Pulmonary effort is normal. Breath sounds: Normal breath sounds. Comments: Left anterior chest wall is tender Chest: Chest wall: Tenderness present. Abdominal: General: Bowel sounds are normal. Palpations: Abdomen is soft. Tenderness: There is no abdominal tenderness. Musculoskeletal: General: Normal range of motion. Cervical back: Full passive range of motion without pain and normal range of motion. Skin: General: Skin is warm and dry. Capillary Refill: Capillary refill takes less than 2 seconds. Neurological: Mental Status: He is alert and oriented to person, place, and time. Mental status is at baseline. Cranial Nerves: No cranial nerve deficit. Sensory: No sensory deficit. Motor: No weakness. Psychiatric: Mood and Affect: Mood normal. Behavior: Behavior normal. Neurological Exam Mental Status Alert. Oriented to person, place, and time. Cranial Nerves CN III, IV, : Extraocular movements intact bilaterally. Pupils equal round and reactive to light bilaterally. Ortho Exam ED Course & MDM Medications sodium chloride 0.9% (NS) bolus (1,000 mLs intravenous New Bag 04/12/25 1616) ketorolac (TORADOL) injection 15 mg (15 mg intravenous Given 04/12/25 1655) Results for orders placed or performed during the hospital encounter of 04/12/25 CBC with Auto Diff Result Value Ref Range WBC 6.0 4.2 - 9.1 K/??L RBC 4.39 (L) 4.63 - 6.08 M/??L Hemoglobin 13.5 (L) 13.7 - 17.5 GM/DL Hematocrit 39.2 (L) 40.1 - 51.0 % MCV 89 79 - 92 fL MCH 30.8 25.7 - 32.2 pg MCHC 34.4 32.3 - 36.5 GM/DL RDW 12.8 11.6 - 14.4 % Platelets 228 140 - 375 K/CU MM MPV 9.9 9.4 - 12.4 fL Nucleated Red Blood Cell 0.0 0 - 0.2 % % Neutros 67 34 - 68 % % Lymphs 23 22 - 53 % % Monos 8 5 - 12 % % Eos 1.2 1.0 - 7.0 % % Baso 1 0 - 1 % NRBC Absolute <0.01 0 - 0.012 K/ul # Neutros 4.04 1.78 - 5.38 K/??L # Lymphs 1.38 1.32 - 3.57 K/??L # Monos 0.46 0.30 - 0.82 K/??L # Eos 0.07 0.04 - 0.54 K/??L # Baso 0.06 0.01 - 0.08 K/??L % Imm Grans 0.20 0.01 - 0.43 % # IG <0.03 0.00 - 0.03 K/uL Comprehensive metabolic panel Result Value Ref Range Sodium 138 135 - 145 meq/L Potassium 4.0 3.5 - 5.3 meq/L Chloride 108 101 - 111 meq/L CO2 23 21 - 31 meq/L Calcium 8.9 8.5 - 10.5 mg/dL Glucose 108 (H) 74 - 100 mg/dL BUN 10 6 - 20 mg/dL Creatinine 0.67 0.50 - 1.20 mg/dL BUN/Creatinine 15 Albumin 3.1 (L) 3.2 - 5.5 g/dL Alkaline Phosphatase 114 42 - 115 U/L ALT 12 5 - 50 U/L AST 15 10 - 42 U/L Total Bilirubin 0.8 0.0 - 1.0 mg/dL Protein, Total 6.5 (L) 6.7 - 8.2 gm/dL Anion Gap 11 8 - 16 A/G Ratio 0.9 Globulin 3.4 g/dL Osmolality Calc 275.3 mOsm/kg eGFR (mL/min/1.73m2) >60 >=60 mL/min/1.73m2 High Sensitivity Troponin I Result Value Ref Range Troponin I High Sensitivity (pg/mL) <3.0 (L) 3 - 58.8 pg/mL aPTT Result Value Ref Range aPTT 28.2 22.0 - 32.0 seconds Prothrombin time/INR Result Value Ref Range Protime 10.8 9.0 - 12.0 seconds INR 1.03 0.80 - 1.10 XR chest 1 view portable / bedside ED Interpretation No displaced rib fractures or pneumothorax visualized ED Course as of 04/12/25 1737 Wed Apr 12, 2025 1733 Hemoglobin 13.5 Coags within normal limits CMP essentially unremarkable Troponin less than 3 [CM] ED Course User Index [CM] Willy Cuevas DO Procedures Medical Decision Making Amount and/or Complexity of Data Reviewed Radiology: independent interpretation performed. Risk Prescription drug management. MDM Pt is a 64 y.o. male with history of chronic back pain here with complaints of intermittent syncope, left-sided rib pain after fall about a week and a half ago and single episode of bloody BM. My differential includes but is not limited to: Potential acute dysrhythmia, electrolyte disturbance, vasovagal syncope, or hypovolemia. Patient may also have lower GI bleeding based on description. Examination of the abdomen is reassuring and soft, chest wall is tender on the anterior lateral portion of the left. The patient was treated here with IV fluid bolus 1 L and 15 mg IV Toradol for pain control. EKG Interpretation: Sinus rhythm 88 bpm with no axis deviation and incomplete right bundle branch block pattern. MT, QRS, and QT intervals within normal limits. No significant ST changes. Laboratory studies: Please see Course for notable Lab results. Imaging studies: Official radiology interpretation noted below was reviewed by me. XR chest 1 view portable / bedside ED Interpretation No displaced rib fractures or pneumothorax visualized On reassessment, the patient's symptoms are improved. Patient's orthostatic vital signs are negative for acute change, I suspect after IV fluids his volume is come up to a reasonable level. Patient does not have a significant loss of blood, I do think the blood per rectum may be from superficial bleeding. He has not continued. The patient was updated on his results and the plan of care. The patient's prescriptions were reviewed and I considered the following discharge prescriptions or medication management in the emergencydepartment: -----Medications were administered in the emergency department. See MAR -----Antihypertensives: At this time, antihypertensives are not recommended. I recommend home bloodpressure checks and following up with primary care provider. -----Pain medications: At this time, prescription pain medications are not recommended. The patientwas advised to follow up with his primary care provider for reevaluation, and to contact their office to schedule an appointment. Return precautions are provided, and he will return here immediately with any new or worsening symptoms. The patient verbalized understanding and agreement, and was discharged home in stable condition. Assessment & Plan Clinical Impression Diagnosis Comment Added By Time Added Syncope, unspecified syncope type Willy Cuevas DO 04/12/2025 5:34 PM Disposition Discharge [1] - 04/12/2025 5:35 PM New Prescriptions No medications on file Contact information for follow-up [facility] [address] [facility] [address] Next Steps: Follow up Electronically Signed By Willy Cuevas DO 04/12/25 6727 documented in this encounter Plan of Treatment Not on file documented as of this encounter Procedures Procedure Name Priority Date/Time Associated Diagnosis Comments URINALYSIS, REFLEX MICROSCOPIC AND CULTURE IF INDICATED STAT 04/12/2025 5:58 PM EDT URINE DRUG SCREEN STAT 04/12/2025 5:5 8 PM EDT XR CHEST 1 VIEW PORTABLE / BEDSIDE STAT 04/12/2025 4:47 PM EDT SST TOP EXTRA TUBES STAT 04/12/2025 4 :17 PM EDT [place] RED TOP (EXTRA TUBES) STAT 04/12/2025 4:17 PM EDT [place] EXTRA TUBES STAT 04/12/2025 4:17 PM EDT CBC W/ AUTO DIFF STAT 04/12/2025 4:15 PM EDT HIGH SENSITIVITY TROPONIN I STAT 04/12/2025 4:15 PM EDT APTT STAT 04/12/2025 4:15 PM EDT PROTHROMBIN TIME/INR STAT 04/12/2025 4:15 PM EDT COMPREHENSIVE METABOLIC PANEL STAT 04/12/2025 4:15 PM EDT FS_MODEL_IP_ECG 12-LEAD STAT 04/12/2025 documented in this encounter Results * (ABNORMAL) Urine Drug Screen (04/12/2025 5:58 PM EDT) Amphetamine Urine Negative Negative 025 7:01 PM EDT [facility] Barbiturate Screen Negative Negative 2024 7:01 PM EDT [facility] Benzodiazepine Screen Negative Negative 7:01 PM EDT [facility] Cocaine (Metab.) Screen Negative Negative 04/12/2025 7:01 PM EDT [facility] Methadone Screen Negative Negative 04/12/20 25 7:01 PM EDT [facility] Opiate Screen Negative Negative 04/12/2025 7:01 PM EDT [facility] Phencyclidine Screen Negative Negative 03/16 7:01 PM EDT [facility] Tetrahydrocannabinol Positive(A ) Negative 04/12/2025 7:01 PM EDT [facility] Creatinine, Ur 89.80 mg/dL 04/12/2025 7:01 PM EDT [facility] Urine 04/12/2025 5:58 PM EDT 04/12/2025 6:04 PM EDT Narrative [facility] - 04/12/2025 7:01 PM EDT Clinical consideration and professional judgement should be applied to any [id number] test result, particularly when preliminary positive results are used. Positive results should be confirmed if used for clinical or legal purposes. Cutoff Values: UDS Amphetamines = 500 ng/mL UDS Barbiturates = 200 ng/mL UDS Benzodiazepines = 200 ng/mL UDS Cocaine = 300 ng/mL UDS Methadone = 300 ng/mL UDS PCP = 25 ng/mL UDS THC = 50 ng/mL [facility] URINE [place] [address], [facility] [[email or web address]] [phone] * (ABNORMAL) Urinalysis, Reflex Microscopic and Culture If Indicated (04/12/2025 5:58 PM EDT) Color, UA Yellow 04/12/2025 6:08 PM EDT [facility] Clarity, UA Clear Clear 04/12/2025 6:08 PM EDT [facility] Specific [place], UA 1.010 1.005 - 1.030 04/12/2025 6:08 PM EDT [facility] pH, UA 7.0 6.0 - 8.0 04/12/2025 6:08 PM EDT [facility] Leukocytes, UA Negative Negative 04/12/2025 6:08 PM EDT [facility] Nitrite, UA Negative Negative 04/12/2025 6:08 PM EDT [facility] Protein, UA Negative Negative 04/12/2025 6:08 PM EDT [facility] Glucose, UA Normal Normal 04/12/2025 6:08 PM EDT [facility] Ketones, UA Trace(A) Negative 04/12/2025 6:08 PM EDT [facility] Bilirubin, UA Negative Negative 04/12/2025 6:08 PM EDT [facility] Blood, UA Negative Negative 04/12/2025 6:08 PM EDT [facility] Urobilinogen, UA Normal Normal 04/12/2025 6:08 PM EDT [facility] Specimen Source Urine, Clean Catch 04/12/2025 6:08 PM EDT [facility] Urine URINE SPECIMEN COLLECTION, CLEAN CATCH / Unknown 04/12/2025 5:58 PM EDT 04/12/2025 6:04 PM EDT us Farhad [place] PA URINE ORDERABLES Final Result [facility] [address] [place] [address], [facility] [[email or web address]] [phone] * XR chest 1 view portable / bedside (04/12/2025 4:47 PM EDT) Anatomical Region Laterality Modality X-Ray 04/12/2025 10:2 7 PM EDT Impressions 04/12/2025 10:30 PM EDT Unremarkable portable chest. Images reviewed, interpreted, and dictated by Francisco Estevez MD Narrative 04/12/2025 10:30 PM EDT CHEST ONE VIEW HISTORY: Syncope. COMPARISON: None. FINDINGS: Portable view of the chest demonstrates the lungs to be grossly clear. There is no evidence of effusion, pneumothorax or other significant pleural disease. The mediastinum is unremarkable. The heart size is normal. Cerclage wires project over the thorax presumably associated with rib surgery. Procedure Note Francisco Estevez MD - 04/12/2025 CHEST ONE VIEW HISTORY: Syncope. COMPARISON: None. FINDINGS: Portable view of the chest demonstrates the lungs to be grossly clear. There is no evidence of effusion, pneumothorax or other significant pleural disease. The mediastinum is unremarkable. The heart size is normal. Cerclage wires project over the thorax presumably associated with rib surgery. IMPRESSION: Unremarkable portable chest. Images reviewed, interpreted, and dictated by Francisco Estevez MD Farhad [facility] ORDERA BLES Final Result * SST Top (04/12/2025 4:17 PM EDT) HOLD SPECIMEN (SJ - BKR) Hold for add-ons. 04/12/2025 6:00 PM EDT [facility] Comment:Auto resulted. Blood Venipuncture / Unknown 04/12/2025 4:17 PM EDT 04/12/2025 4:19 PM EDT Willy Cuevas DO LAB BLOOD ORDERABLES Final Res ult [facility] [address] [phone] * Red Top Extra Tubes (04/12/2025 4:17 PM EDT) HOLD SPECIMEN (SJ - BKR) Hold for add-ons. 04/12/2025 6:00 PM EDT [facility] Comment:Auto resulted. Blood (Blood, Veinous) Venipuncture / Unknown 04/12/2025 4:17 PM EDT 04/12/2025 4:19 PM EDT Willy Cuevas DO LAB BLOOD ORDERABLES Final Res ult [facility] [address] [place] [address] * Prothrombin time/INR (04/12/2025 4:15 PM EDT) Protime 10.8 9.0 - 12.0 seconds 04/12/2025 4:41 PM EDT [facility] INR 1.03 0.80 - 1.10 04/12/2025 4:41 PM EDT [facility] Comment: Recommended therapeutic ranges using International Normalized Ratio (INR) are: INR RANGE 2.0 - 3.0 Routine oral anticoagulant therapy 2.5 - 3.5 Oral anticoagulant therapy for patients with thromboembolic events on standard doses of Coumadin and those with mechanical heart valves. Blood Venipuncture / Unknown 04/12/2025 4:15 PM EDT 04/12/2025 4:19 PM EDT Farhad Meyers PA LAB BLOOD ORDERABLES Final Re sult [facility] [address] [place] [address] * aPTT (04/12/2025 4:15 PM EDT) aPTT 28.2 22.0 - 32.0 seconds 04/12/2025 4:41 PM EDT [facility] Blood Venipuncture / Unknown 04/12/2025 4:15 PM EDT 04/12/2025 4:19 PM EDT Farhad HAM LAB BLOOD ORDERABLES Final Re sult Performing Organization Address City/[facility]/ZIP Co de Phone Number [facility] [address] [place] [address] * (ABNORMAL) High Sensitivity Troponin I (04/12/2025 4:15 PM EDT) Pathologist [facility] Troponin I High Sensitivity (pg/mL) <3.0(L) 3 - 58.8 pg/mL 04/12/2025 4:51 PM EDT [facility] Comment: Troponin Result (pg/mL) *Interpretation 3-58.8 *Normal; less than 99th percentile of normal range >58.8 *Abnormal; greater than 99th percentile of normal range Biotin specimen concentration >300 ng/mL may lead to falsely depressed results for patient samples. Do not use this test for renal dysfunction patients (eGFR <60) unless it is confirmed that the patient is not taking Biotin. Blood Venipuncture / Unknown 04/12/2025 4:15 PM EDT 04/12/2025 4:19 PM EDT Farhad HAM LAB BLOOD ORDERABLES Final Re sult Performing Organization Address [facility] Co de Phone Number [facility] [address] [place] [address] * (ABNORMAL) Comprehensive metabolic panel (04/12/2025 4:15 PM EDT) Pathologist [facility] Sodium 138 135 - 145 meq/L 04/12/2025 4:49 PM EDT [facility] Potassium 4.0 3.5 - 5.3 meq/L 04/12/2025 4:49 PM EDT [facility] Chloride 108 101 - 111 meq/L 04/12/2025 4:49 PM EDT [facility] CO2 23 21 - 31 meq/L 04/12/2025 4:49 PM EDT [facility] Calcium 8.9 8.5 - 10.5 mg/dL 04/12/2025 4:49 PM [facility] Glucose 108(H) 74 - 100 mg/dL 04/12/2025 4:49 PM [facility] BUN 10 6 - 20 mg/dL 04/12/2025 4:49 PM [facility] Creatinine 0.67 0.50 - 1.20 mg/dL 04/12/2025 4:49 PM [facility] BUN/Creatinine 15 04/12/2025 4:49 PM [facility] Albumin 3.1(L) 3.2 - 5.5 g/dL 04/12/2025 4:49 PM [facility] Alkaline Phosphatase 114 42 - 115 U/L 04/12/2025 4:49 PM [facility] ALT 12 5 - 50 U/L 04/12/2025 4:49 PM [facility] AST 15 10 - 42 U/L 04/12/2025 4:49 PM [facility] Total Bilirubin 0.8 0.0 - 1.0 mg/dL 04/12/2025 4:49 PM [facility] Protein, Total 6.5(L) 6.7 - 8.2 gm/dL 04/12/2025 4:49 PM [facility] Anion Gap 11 8 - 16 04/12/2025 4:49 PM [facility] A/G Ratio 0.9 04/12/2025 4:49 PM [facility] Globulin 3.4 g/dL 04/12/2025 4:49 PM [facility] Osmolality Calc 275.3 mOsm/kg 4:49 PM [facility] eGFR (mL/min/1.73m2) >60 >=60 mL/min/1.7 3m2 04/12/2025 4:49 PM [facility] Comment:ESTIMATED GFR IS NOT ACCURATE CREATININE CLEARANCE IN PREDICTING GLOMERULAR FILTRATION RATE. ESTIMATED GFR IS NOT APPLICABLE FOR DIALYSIS PATIENTS. Blood Venipuncture / Unknown 04/12/2025 4:15 PM EDT 04/12/2025 4:19 PM EDT us Farhad HAM LAB BLOOD ORDERABLES Final Re sult [facility] [address] [place] [address], [facility] [[email or web address]] [phone] * (ABNORMAL) CBC with Auto Diff (04/12/2025 4:15 PM EDT) WBC 6.0 4.2 - 9.1 K/ L 04/12/2025 4:30 PM EDT [facility] RBC 4.39(L) 4.63 - 6.08 M/ L 04/12/2025 4:30 PM EDT [facility] Hemoglobin 13.5(L) 13.7 - 17.5 GM/DL 04/12/2025 4:30 PM EDT [facility] Hematocrit 39.2(L) 40.1 - 51.0 % 04/12/2025 4:30 PM EDT [facility] MCV 89 79 - 92 fL 04/12/2025 4:30 PM EDT [facility] MCH 30.8 25.7 - 32.2 pg 04/12/2025 4:30 PM EDT [facility] MCHC 34.4 32.3 - 36.5 GM/DL 04/12/2025 4:30 PM EDT [facility] RDW 12.8 11.6 - 14.4 % 04/12/2025 4:30 PM EDT [facility] Platelets 228 140 - 375 K/CU MM 04/12/2025 4:30 PM EDT [facility] MPV 9.9 9.4 - 12.4 fL 04/12/2025 4:30 PM EDT [facility] Nucleated Red Blood Cell 0.0 0 - 0.2 % 04/12/2025 4:30 PM EDT [facility] % Neutros 67 34 - 68 % 04/12/2025 4:30 PM EDT [facility] % Lymphs 23 22 - 53 % 04/12/2025 4:30 PM EDT [facility] LABORATORY % Monos 8 5 - 12 % 04/12/2025 4:30 PM EDT [facility] % Eos 1.2 1.0 - 7.0 % 04/12/2025 4:30 PM EDT [facility] % Baso 1 0 - 1 % 04/12/2025 4:30 PM EDT [facility] NRBC Absolute <0.01 0 - 0.012 K/ul 04/12/2025 4:30 PM EDT [facility] # Neutros 4.04 1.78 - 5.38 K/ L 04/12/2025 4:30 PM EDT [facility] # Lymphs 1.38 1.32 - 3.57 K/ L 04/12/2025 4:30 PM EDT [facility] # Monos 0.46 0.30 - 0.82 K/ L 04/12/2025 4:30 PM EDT [facility] # Eos 0.07 0.04 - 0.54 K/ L 04/12/2025 4:30 PM EDT [facility] # Baso 0.06 0.01 - 0.08 K/ L 04/12/2025 4:30 PM EDT [facility] % Imm Grans 0.20 0.01 - 0.43 % 04/12/2025 4:30 PM EDT [facility] # IG <0.03 0.00 - 0.03 K/uL 04/12/2025 4:30 PM EDT [facility] Blood Venipuncture / Unknown 04/12/2025 4:15 PM EDT 04/12/2025 4:19 PM EDT Narrative [facility] - 04/12/2025 4:30 PM EDT When CBC w/ Auto Diff is ordered the lab will add a Manual Differential as a quality check at no additional charge if: Lymphocytes greater than seventy five percent with normal or increased WBC Monocytes greater than Fifteen percent Basophil greater than four percent Bands >10% or several immature myeloids are seen on scan Blast? Flag noted Atypical Lymph flag noted us Farhad HAM LAB BLOOD ORDERABLES Final Re sult [facility] [address] [id number] [phone] * ECG 12 lead (04/12/2025) Farhad HAM ECG ORDERABLES Final Result documented in this encounter Visit Diagnoses Diagnosis Syncope, unspecified syncope type- Primary documented in this encounter Administered Medications Inactive Administered Medications - up to 3 most recent administrations Medication Order MAR Action Action Date Dose Rate Site ketorolac (TORADOL) injection 15 mg 15 mg Once, intravenous, On Thu04/12/25 at 1700, For 1 dose Given 04/12/2025 4:55 PM EDT 15 mg sodium chloride 0.9% (NS) bolus 1,000 mL Once, intravenous, Administer over 60 Minutes, On Thu04/12/25 at 1600, For 1 dose New Bag 04/12/2025 4:16 PM EDT 1,000 mLs 1000 mL/hr documented in this encounter Active and Recently Administered Medications Times are shown in EDT. Scheduled Medication Order 04/10/2025 04/11/2025 04/12/2025 ketorolac (TORADOL) injection 15 mg (COMPLETED) 15 mg Once, intravenous, On Thu04/12/25 at 1700, For 1 dose 1655 (Given - Provid er: Poornima Monson) sodium chloride 0.9% (NS) bolus (COMPLETED) 1,000 mL Once, intravenous, Administer over 60 Minutes, On Thu04/12/25 at 1600, For 1 dose 1616 (New Bag - Prov ider: Damian Dumont RN)1716 (Stopped - Provider: Damian Dumont RN) documented in this encounter Care Teams Bead Trimmer Relationship Specialty Start Date End Date [facility], [facility] [place] [address] PCP - General 04/12/25 documented as of this encounter
[2025-05-02 19:15] LABS: Hematocrit 42.0 % (42.0-52.0); Hemoglobin 14.1 g/dL (14.1-18.0); Immature Granulocytes % 0.1 %; Mean Corpuscular HGB Conc 33.6 g/dL (31.8-35.4); Mean Corpuscular Hemoglobin 30.7 pg (27.0-31.2); Mean Corpuscular Volume 91.5 fl (80-94); Nucleated Red Blood Cells % 0 %; Platelet Count 300 K/mm3 (142-424); Red Blood Count 4.59 M/mm3 (4.60-6.20); Red Cell Distribution Width-SD 47.7 fL; White Blood Count 6.9 K/mm3 (4.8-10.8)
[2025-05-02 19:31] LABS: Chloride 106 mmol/L (98-107)
[2025-05-02 19:32] LABS: Albumin Level 3.4 g/dl (3.5-5.0); Sodium 142 mmol/L (136-145)
[2025-05-02 19:34] LABS: Alanine Aminotransferase 13 U/L (12-78); Aspartate Amino Transferase 24 U/L (17-59); Blood Urea Nitrogen 7 mg/dl (9-20); Carbon Dioxide 25 mmol/L (22.0-30.0); Creatinine,Serum 0.70 mg/dl (0.66-1.25); Estimated Glomerular Filt Rate 114 ml/min (>60); GFR (African American) 138 ML/MIN (>60)
[2025-05-02 19:35] LABS: Albumin/Globulin Ratio 1.2 (1.1-1.8); Alkaline Phosphatase 137 U/L (38-126); Bilirubin,Total 0.2 mg/dl (0.2-1.3); Calcium 9.1 mg/dl (8.4-10.2); Globulin 2.8 g/dL (1.3-3.2); Glucose 101 mg/dl (74-100); Total Protein,Serum 6.2 g/dl (6.3-8.2)
[2025-05-02 19:50] LABS: Free T4 (Free Thyroxine) 0.92 ng/dl (0.78-2.19)
[2025-05-02 20:04] LABS: Thyroid Stimulating Hormone 1.12 uIU/mL (0.465-4.68)
[2025-05-02 20:24] LABS: Anion Gap 15.5 mEq/L (5-15); Potassium 4.5 mmoL/L (3.5-5.1)
--- OUTSIDE RECORDS SUMMARY | 2025-05-03 12:24 | XMS_ITS | Encounter Summary ---
Author Organization [employer] ([place], [place], [place], [place], [place]) Address [address] [place] [address] Care Team Providers Care Heavy Duty Press Operator Name Role Phone [facility] Amber Find[facility]Doc Primary Care Provider Encounter Details Date Type Department Care Team (Latest Contact Info) Description 04/12/2025 Travel Social History Tobacco Use Types Packs/Day Years Used Date Smoking Tobacco: Every Day Cigarettes Smokeless Tobacco: Never Alcohol Use Standard Drinks/Week Comments Never 0 (1 standard drink = 0.6 oz pur e alcohol) Sex and Gender Information Value Date Recorded Sex Assigned at Not on file Legal Sex Male 2:37 PM CDT Gender Identity Not on file Sexual Orientation Not on file documented as of this encounter Plan of Treatment Not on file documented as of this encounter Visit Diagnoses Not on filedocumented in this encounter Care Teams Heavy Duty Press Operator Relationship Specialty Start Date End Date [facility] Amber [facility] [place] [address] PCP - General 04/12/25 documented as of this encounter
--- OUTSIDE RECORDS SUMMARY | 2025-05-03 12:24 | XMS_ITS | Clinical Summary ---
Author Organization [facility] Address [address] [place] [address] Phone Care Team Providers Care Board Worker Name Role Phone Unavailable Primary Care Provider [...] Date Smoking Tobacco: Every Day Cigarettes 1.5 42.9 Started: 06/15/1982 Smokeless Tobacco: Never Tobacco Cessation:Ready [...] on file Sexual Orientation Not on file Last Filed Vital Signs Vital Sign Reading [...] 2 - PCV) 08/13/2017 08/13/2016 COVID-19 Vaccine (1 - 2024-2 6 season) 2025 Influenza Vaccine (#1) 2025 8, 08/13/2016, 09/06/2015 DTaP/TDaP/Td (2 - Td or Tdap) 09/05/2025 09/06/2015 Hepatitis B Vaccine Aged Out No longe r eligible based on patient's age to complete this topic Meningococcal B Vaccine Aged Out No l onger eligible based on patient's age to complete this topic
--- OUTSIDE RECORDS SUMMARY | 2025-05-03 12:24 | XMS_ITS | Referral Summary ---
Author Organization [employer] ([place], [place], [place], [place], [place]) Address [address] [place] [address] Care Team Providers Care In Home Tutor Name Role Phone [facility] Amber, Find-A-Doc Primary Care Provider Encounters Date Type Department Care Team Description 04/12/2025 Travel 04/12/2025 3:45 PM EDT - 04/12/2025 5:36 PM EDT Emergency [facility] Emergency Department [address] [place] [address] Willy Cuevas DO Syncope, unspecified syncope type (Primary Dx) Discharge Disposition: Home or Self Care from Last 3 Months Allergies No known active allergies Medications No known medications Social History Tobacco Use Types Packs/Day Years [...] Mass Index 18.99 04/12/2025 3:42 PM EDT Plan of Treatment Not on file Procedures Procedure Name Priority Date/Time Associated Diagnosis Comments URINE DRUG SCREEN STAT 04/12/2025 5:5 8 PM EDT URINALYSIS, REFLEX MICROSCOPIC AND CULTURE IF INDICATED STAT 04/12/2025 5:58 PM EDT XR CHEST 1 VIEW PORTABLE / BEDSIDE STAT 04/12/2025 4:47 PM EDT SST TOP EXTRA TUBES STAT 04/12/2025 4 :17 PM EDT [place] RED TOP (EXTRA TUBES) STAT 04/12/2025 4:17 PM EDT [place] EXTRA TUBES STAT 04/12/2025 4:17 PM EDT PROTHROMBIN TIME/INR STAT 04/12/2025 4:15 PM EDT APTT STAT 04/12/2025 4:15 PM EDT HIGH SENSITIVITY TROPONIN I STAT 04/12/2025 4:15 PM EDT COMPREHENSIVE METABOLIC PANEL STAT 04/12/2025 4:15 PM EDT CBC W/ AUTO DIFF STAT 04/12/2025 4:15 PM EDT [id number]_[id number] 12-LEAD STAT 04/12/2025 from Last 3 Months Results * (ABNORMAL) Urinalysis, Reflex Microscopic and Culture If Indicated (04/12/2025 5:58 PM EDT) Color, UA Yellow 04/12/2025 6:08 PM EDT [facility] Clarity, UA Clear Clear 04/12/2025 6:08 PM EDT [facility] Specific [place], UA 1.010 1.005 - 1.030 04/12/2025 6:08 PM EDT [facility] pH, UA 7.0 6.0 - 8.0 04/12/2025 6:08 PM EDT [facility] Leukocytes, UA Negative Negative 04/12/2025 6:08 PM EDT [facility] Nitrite, UA Negative Negative 04/12/2025 6:08 PM EDT [facility] Protein, UA Negative Negative 04/12/2025 6:08 PM EDT [facility] Glucose, UA Normal Normal 04/12/2025 6:08 PM EDT [facility] Ketones, UA Trace(A) Negative 04/12/2025 6:08 PM EDT [facility] Bilirubin, UA Negative Negative 04/12/2025 6:08 PM EDT [facility] Blood, UA Negative Negative 04/12/2025 6:08 PM EDT [facility] Urobilinogen, UA Normal Normal 04/12/2025 6:08 PM EDT [facility] Specimen Source Urine, Clean Catch 04/12/2025 6:08 PM EDT [facility] Urine URINE SPECIMEN COLLECTION, CLEAN CATCH / Unknown 04/12/2025 5:58 PM EDT 04/12/2025 6:04 PM EDT us Farhad HAM URINE ORDERABLES Final Result Performing Organization Address [facility]/State/ZIP Co de Phone Number [facility] [address] [place] [address] * (ABNORMAL) Urine Drug Screen (04/12/2025 5:58 PM EDT) Amphetamine Urine Negative Negative 025 7:01 PM EDT [facility] Barbiturate Screen Negative Negative 2024 7:01 PM EDT [facility] Benzodiazepine Screen Negative Negative 7:01 PM EDT [facility] Cocaine (Metab.) Screen Negative Negative 04/12/2025 7:01 PM EDT [facility] Methadone Screen Negative Negative 04/12/20 7:01 PM EDT [facility] Opiate Screen Negative Negative 04/12/2025 7:01 PM EDT [facility] Phencyclidine Screen Negative Negative 03/16 7:01 PM EDT [facility] Tetrahydrocannabinol Positive(A ) Negative 04/12/2025 7:01 PM EDT [facility] Creatinine, Ur 89.80 mg/dL 04/12/2025 7:01 PM EDT [facility] Urine 04/12/2025 5:58 PM EDT 04/12/2025 6:04 PM EDT Narrative [facility] - 04/12/2025 7:01 PM EDT Clinical consideration and professional judgement should be applied to any [id number] test result, particularly when preliminary positive results are used. Positive results should be confirmed if used for clinical or legal purposes. Cutoff Values: UDS Amphetamines = 500 ng/mL UDS Barbiturates = 200 ng/mL UDS Benzodiazepines = 200 ng/mL UDS Cocaine = 300 ng/mL UDS Methadone = 300 ng/mL UDS PCP = 25 ng/mL UDS THC = 50 ng/mL Farhad HAM URINE ORDERABLES Final Result Performing Organization Address City/State/[facility] Co de Phone Number [facility] [address] [phone] * XR chest 1 view portable / [...] Top (04/12/2025 4:17 PM EDT) HOLD SPECIMEN ( - BKR) Hold for add-ons. 04/12/2025 6:00 PM EDT [facility] Comment:Auto resulted. Blood Venipuncture / Unknown 04/12/2025 4:17 PM EDT 04/12/2025 4:19 PM EDT [employer] LAB BLOOD ORDERABLES Final Res ult Performing Organization Address City/[facility]/ZIP Co de Phone Number [facility] [address] [place] [address] * Red Top Extra Tubes (04/12/2025 4:17 PM EDT) HOLD SPECIMEN (SJ - BKR) Hold for add-ons. 04/12/2025 6:00 PM EDT [facility] Comment:Auto resulted. Blood (Blood, Veinous) Venipuncture / Unknown 04/12/2025 4:17 PM EDT 04/12/2025 4:19 PM EDT [employer] LAB BLOOD ORDERABLES Final Res ult Performing Organization Address City/[facility]/ZIP Co de Phone Number [facility] [address] [place] [address] * (ABNORMAL) CBC with Auto Diff (04/12/2025 4:15 PM EDT) WBC 6.0 4.2 - 9.1 K/ L 04/12/2025 4:30 PM EDT [facility] RBC 4.39(L) 4.63 - 6.08 M/ L 04/12/2025 4:30 PM EDT [facility] Hemoglobin 13.5(L) 13.7 - 17.5 GM/DL 04/12/2025 4:30 PM EDT [facility] Hematocrit 39.2(L) 40.1 - 51.0 % 04/12/2025 4:30 PM EDT [facility] MCV 89 79 - 92 fL 04/12/2025 4:30 PM EDT [facility] MCH 30.8 25.7 - 32.2 pg 04/12/2025 4:30 PM EDT [facility] MCHC 34.4 32.3 - 36.5 GM/DL 04/12/2025 4:30 PM EDT [facility] RDW 12.8 11.6 - 14.4 % 04/12/2025 4:30 PM EDT [facility] Platelets 228 140 - 375 K/CU MM 04/12/2025 4:30 PM EDT [facility] MPV 9.9 9.4 - 12.4 fL 04/12/2025 4:30 PM EDT [facility] Nucleated Red Blood Cell 0.0 0 - 0.2 % 04/12/2025 4:30 PM EDT [facility] % Neutros 67 34 - 68 % 04/12/2025 4:30 PM EDT [facility] % Lymphs 23 22 - 53 % 04/12/2025 4:30 PM EDT [facility] % Monos 8 5 - 12 % 04/12/2025 4:30 PM EDT [facility] % Eos 1.2 1.0 - 7.0 % 04/12/2025 4:30 PM EDT [facility] % Baso 1 0 - 1 % 04/12/2025 4:30 PM EDT [facility] NRBC Absolute <0.01 0 - 0.012 K/ul 04/12/2025 4:30 PM EDT [facility] # Neutros 4.04 1.78 - 5.38 K/ L 04/12/2025 4:30 PM EDT [facility] # Lymphs 1.38 1.32 - 3.57 K/ L 04/12/2025 4:30 PM EDT [facility] # Monos 0.46 0.30 - 0.82 K/ L 04/12/2025 4:30 PM EDT [facility] # Eos 0.07 0.04 - 0.54 K/ L 04/12/2025 4:30 PM EDT [facility] # Baso 0.06 0.01 - 0.08 K/ L 04/12/2025 4:30 PM EDT [facility] % Imm Grans 0.20 0.01 - 0.43 % 04/12/2025 4:30 PM EDT [facility] # IG <0.03 0.00 - 0.03 K/uL 04/12/2025 4:30 PM EDT [facility] Blood Venipuncture / Unknown 04/12/2025 4:15 PM EDT 04/12/2025 4:19 PM EDT Narrative [facility] - 04/12/2025 4:30 PM EDT When [...] HAM LAB BLOOD ORDERABLES Final Re sult [facility] [address] [phone] * (ABNORMAL) High Sensitivity Troponin I (04/12/2025 4:15 PM EDT) Troponin I High Sensitivity (pg/mL) <3.0(L) 3 - 58.8 pg/mL 04/12/2025 4:51 PM EDT [facility] Comment: Troponin Result (pg/mL) *Interpretation 3-58.8 [...] 4:15 PM EDT 04/12/2025 4:19 PM EDT [employer] [facility] LAB BLOOD ORDERABLES Final Re sult Performing Organization Address City/[facility]/ZIP Co de Phone Number [facility] [address] [place] [address] * aPTT (04/12/2025 4:15 PM EDT) aPTT 28.2 22.0 - 32.0 seconds 04/12/2025 4:41 PM EDT [facility] Blood Venipuncture / Unknown 04/12/2025 4:15 PM EDT 04/12/2025 4:19 PM EDT [employer] [facility] LAB BLOOD ORDERABLES Final Re sult [facility] [address] [place] [address] * Prothrombin time/INR (04/12/2025 4:15 PM EDT) Protime 10.8 9.0 - 12.0 seconds 04/12/2025 4:41 PM EDT [facility] INR 1.03 0.80 - 1.10 04/12/2025 4:41 PM EDT [facility] Comment: Recommended therapeutic ranges using International Normalized Ratio (INR) are: INR RANGE 2.0 - 3.0 Routine oral anticoagulant therapy 2.5 - 3.5 Oral anticoagulant therapy for patients with thromboembolic events on standard doses of Coumadin and those with mechanical heart valves. Blood Venipuncture / Unknown 04/12/2025 4:15 PM EDT 04/12/2025 4:19 PM EDT us Farhad HAM LAB BLOOD ORDERABLES Final Re sult [facility] [address] [phone] * (ABNORMAL) Comprehensive metabolic panel (04/12/2025 4:15 PM EDT) Sodium 138 135 - 145 meq/L 04/12/2025 4:49 PM EDT [facility] Potassium 4.0 3.5 - 5.3 meq/L 04/12/2025 4:49 PM EDT [facility] Chloride 108 101 - 111 meq/L 04/12/2025 4:49 PM EDT [facility] CO2 23 21 - 31 meq/L 04/12/2025 4:49 PM EDT [facility] Calcium 8.9 8.5 - 10.5 mg/dL 04/12/2025 4:49 PM EDT [facility] Glucose 108(H) 74 - 100 mg/dL 04/12/2025 4:49 PM EDT [facility] BUN 10 6 - 20 mg/dL 04/12/2025 4:49 PM EDT [facility] Creatinine 0.67 0.50 - 1.20 mg/dL 04/12/2025 4:49 PM EDT [facility] BUN/Creatinine 15 04/12/2025 4:49 PM EDT [facility] Albumin 3.1(L) 3.2 - 5.5 g/dL 04/12/2025 4:49 PM EDT [facility] Alkaline Phosphatase 114 42 - 115 U/L 04/12/2025 4:49 PM EDT [facility] ALT 12 5 - 50 U/L 04/12/2025 4:49 PM EDT [facility] AST 15 10 - 42 U/L 04/12/2025 4:49 PM EDT [facility] Total Bilirubin 0.8 0.0 - 1.0 mg/dL 04/12/2025 4:49 PM EDT [facility] Protein, Total 6.5(L) 6.7 - 8.2 gm/dL 04/12/2025 4:49 PM EDT [facility] Anion Gap 11 8 - 16 04/12/2025 4:49 PM EDT [facility] A/G Ratio 0.9 04/12/2025 4:49 PM EDT [facility] Globulin 3.4 g/dL 04/12/2025 4:49 PM EDT [facility] Osmolality Calc 275.3 mOsm/kg 4:49 PM EDT [facility] eGFR (mL/min/1.73m2) >60 >=60 mL/min/1.7 3m2 04/12/2025 4:49 PM EDT [facility] Comment:ESTIMATED GFR IS NOT ACCURATE CREATININE CLEARANCE IN PREDICTING GLOMERULAR FILTRATION RATE. ESTIMATED GFR IS NOT APPLICABLE FOR DIALYSIS PATIENTS. Blood Venipuncture / Unknown 04/12/2025 4:15 PM EDT 04/12/2025 4:19 PM EDT Farhad HAM LAB BLOOD ORDERABLES Final Re sult [facility] [address] [place] [address], [facility] [phone] * ECG 12 lead (04/12/2025) Farhad HAM ECG ORDERABLES Final Result from Last 3 Months Insurance [employer] [place] Care Teams In Home Tutor Relationship Specialty Start Date End Date [facility] Connection, [facility]Doc [facility] Amber Find-[facility]-Doc [place] [phone] PCP - General 04/12/25
--- OUTSIDE RECORDS SUMMARY | 2025-05-03 12:24 | XMS_ITS | Clinical Summary ---
Author Organization [employer] ([place], [place], [place], [place], [place]) Address [address] [place] [address] Care Team Providers Care Kiln Placer Name Role Phone [facility] Amber Find-A-Doc Primary Care Provider Allergies No known active allergies Medications No known medications Encounters Date Type Department Care Team Description 04/12/2025 3:45 PM EDT - 04/12/2025 5:36 PM EDT Emergency [facility] Emergency Department [address] [place] [address] Willy Cuevas DO Syncope, unspecified syncope type (Primary Dx) Discharge Disposition: Home or Self Care 04/12/2025 Travel from Last 3 Months Social History Tobacco Use Types Packs/Day Years [...] 04/12/2025 3:42 PM EDT Plan of Treatment Health Maintenance Due Date Last Done Comments CT Colonography 1962 Colonoscopy 1962 Colorectal Cancer Screening 1962 FOBT/FIT 1962 Fit-DNA (Cologuard) 1962 Sigmoidoscopy 1962 Depression Screening (12+) 1974 Tobacco Cessation Counseling and Screening (12+) 05/11 HIV Screening 1977 Hepatitis C Screening 1980 DTAP/TDAP/TD VACCINES (1 - Tdap) 1981 Pneumococcal 50+ years (1 of 2 - PCV) 1981 Lipid Panel 1997 Shingles Vaccine (Zoster) (1 of 2) 2012 COVID-19 VACCINE ( - season) 2025 Influenza Vaccine (#1) 2025 Respiratory Syncytial Virus (RSV) Adult or (1 - 1-dose 75+ series) 2037 Procedures Procedure Name Priority Date/Time Associated Diagnosis [...] Color, UA Yellow 04/12/2025 6:08 PM EDT [facility] Clarity, UA Clear Clear 04/12/2025 6:08 PM EDT [facility] Specific [place], UA 1.010 1.005 - 1.030 04/12/2025 6:08 PM EDT [facility] pH, UA 7.0 6.0 - 8.0 04/12/2025 6:08 PM EDT [facility] Leukocytes, UA Negative Negative 04/12/2025 6:08 PM EDT [facility] Nitrite, UA Negative Negative 04/12/2025 6:08 PM EDT [facility] Protein, UA Negative Negative 04/12/2025 6:08 PM EDT [facility] Glucose, UA Normal Normal 04/12/2025 6:08 PM EDT [facility] Ketones, UA Trace(A) Negative 04/12/2025 6:08 PM EDT [facility] Bilirubin, UA Negative Negative 04/12/2025 6:08 PM EDT [facility] Blood, UA Negative Negative 04/12/2025 6:08 PM EDT [facility] Urobilinogen, UA Normal Normal 04/12/2025 6:08 PM EDT [facility] Specimen Source Urine, Clean Catch 04/12/2025 6:08 PM EDT [facility] Urine URINE SPECIMEN COLLECTION, CLEAN CATCH / Unknown 04/12/2025 5:58 PM EDT 04/12/2025 6:04 PM EDT Farhad HAM URINE ORDERABLES Final Result [facility] [address] [place] [address], [facility] [phone] * (ABNORMAL) Urine Drug Screen (04/12/2025 5:58 PM EDT) Amphetamine Urine Negative Negative 025 7:01 PM EDT [facility] Barbiturate Screen Negative Negative 2024 7:01 PM EDT [facility] Benzodiazepine Screen Negative Negative 7:01 PM EDT [facility] Cocaine (Metab.) Screen Negative Negative 04/12/2025 7:01 PM EDT [facility] Methadone Screen Negative Negative 04/12/20 25 7:01 PM EDT [facility] Opiate Screen Negative Negative 04/12/2025 7:01 PM EDT [facility] Phencyclidine Screen Negative Negative 03/16 7:01 PM EDT [facility] Tetrahydrocannabinol Positive(A ) Negative 04/12/2025 7:01 PM EDT [facility] Creatinine, Ur 89.80 mg/dL 04/12/2025 7:01 PM EDT [facility] Urine 04/12/2025 5:58 PM EDT 04/12/2025 6:04 PM EDT Narrative [facility] - 04/12/2025 7:01 PM EDT Clinical consideration and professional judgement should be applied to any [id number] test result, particularly when preliminary positive results are used. Positive results should be confirmed if used for clinical or legal purposes. Cutoff Values: UDS Amphetamines = 500 ng/mL UDS Barbiturates = 200 ng/mL UDS Benzodiazepines = 200 ng/mL UDS Cocaine = 300 ng/mL UDS Methadone = 300 ng/mL UDS PCP = 25 ng/mL UDS THC = 50 ng/mL us Farhad HAM URINE ORDERABLES Final Result Performing Organization Address [facility]/ZIP Co de Phone Number [facility] [address] [place] [address], [facility] [phone] * XR chest 1 view portable / [...] Hold for add-ons. 04/12/2025 6:00 PM EDT [facility] Comment:Auto resulted. Blood Venipuncture / Unknown 04/12/2025 4:17 PM EDT 04/12/2025 4:19 PM EDT Willy Cuevas DO LAB BLOOD ORDERABLES Final Res ult [facility] [address] [place] [address], [facility] [phone] * Red Top Extra Tubes (04/12/2025 4:17 PM EDT) HOLD SPECIMEN (SJ - BKR) Hold for add-ons. 04/12/2025 6:00 PM EDT [facility] Comment:Auto resulted. Blood (Blood, Veinous) Venipuncture / Unknown 04/12/2025 4:17 PM EDT 04/12/2025 4:19 PM EDT Willy Cuevas DO LAB BLOOD ORDERABLES Final Res ult Performing Organization Address [facility]/ZIP Co de Phone Number [facility] [address] [place] [address], [facility] [phone] * (ABNORMAL) CBC with Auto Diff (04/12/2025 4:15 PM EDT) WBC 6.0 4.2 - 9.1 K/ L 04/12/2025 4:30 PM EDT [facility] RBC 4.39(L) 4.63 - 6.08 M/ L 04/12/2025 4:30 PM EDT [facility] Hemoglobin 13.5(L) 13.7 - 17.5 GM/DL 04/12/2025 4:30 PM EDT [facility] Hematocrit 39.2(L) 40.1 - 51.0 % 04/12/2025 4:30 PM EDT [facility] MCV 89 79 - 92 fL 04/12/2025 4:30 PM EDT [facility] MCH 30.8 25.7 - 32.2 pg 04/12/2025 4:30 PM EDT [facility] MCHC 34.4 32.3 - 36.5 GM/DL 04/12/2025 4:30 PM EDT [facility] RDW 12.8 11.6 - 14.4 % 04/12/2025 4:30 PM EDT [facility] Platelets 228 140 - 375 K/CU MM 04/12/2025 4:30 PM EDT [facility] MPV 9.9 9.4 - 12.4 fL 04/12/2025 4:30 PM EDT [facility] Nucleated Red Blood Cell 0.0 0 - 0.2 % 04/12/2025 4:30 PM EDT [facility] % Neutros 67 34 - 68 % 04/12/2025 4:30 PM EDT [facility] % Lymphs 23 22 - 53 % 04/12/2025 4:30 PM EDT [facility] % Monos 8 5 - 12 % 04/12/2025 4:30 PM EDT [facility] % Eos 1.2 1.0 - 7.0 % 04/12/2025 4:30 PM EDT [facility] % Baso 1 0 - 1 % 04/12/2025 4:30 PM EDT [facility] NRBC Absolute <0.01 0 - 0.012 K/ul 04/12/2025 4:30 PM EDT [facility] # Neutros 4.04 1.78 - 5.38 K/ L 04/12/2025 4:30 PM EDT [facility] # Lymphs 1.38 1.32 - 3.57 K/ L 04/12/2025 4:30 PM EDT [facility] # Monos 0.46 0.30 - 0.82 K/ L 04/12/2025 4:30 PM EDT [facility] # Eos 0.07 0.04 - 0.54 K/ L 04/12/2025 4:30 PM EDT [facility] # Baso 0.06 0.01 - 0.08 K/ L 04/12/2025 4:30 PM EDT [facility] % Imm Grans 0.20 0.01 - 0.43 % 04/12/2025 4:30 PM EDT [facility] # IG <0.03 0.00 - 0.03 K/uL 04/12/2025 4:30 PM EDT [facility] Blood Venipuncture / Unknown 04/12/2025 4:15 PM EDT 04/12/2025 4:19 PM EDT Narrative [facility] - 04/12/2025 4:30 PM EDT When [...] Blast? Flag noted Atypical Lymph flag noted Farhad HAM LAB BLOOD ORDERABLES Final Re sult [facility] [address] [place] [address] * (ABNORMAL) High Sensitivity Troponin I (04/12/2025 4:15 PM EDT) [facility] Troponin I High Sensitivity (pg/mL) <3.0(L) 3 - 58.8 pg/mL 04/12/2025 4:51 PM EDT [facility] Comment: Troponin Result (pg/mL) *Interpretation 3-58.8 [...] HAM LAB BLOOD ORDERABLES Final Re sult [facility] [address] [place] [address] * aPTT (04/12/2025 4:15 PM EDT) [facility] aPTT 28.2 22.0 - 32.0 seconds 04/12/2025 4:41 PM EDT [facility] Blood Venipuncture / Unknown 04/12/2025 4:15 PM EDT 04/12/2025 4:19 PM EDT Farhad Meyers NM LAB BLOOD ORDERABLES Final Re sult [facility] [address] [place] [address] * Prothrombin time/INR (04/12/2025 4:15 PM EDT) Pathologist [facility] Protime 10.8 9.0 - 12.0 seconds 04/12/2025 4:41 PM EDT [facility] INR 1.03 0.80 - 1.10 04/12/2025 4:41 PM EDT [facility] Comment: Recommended therapeutic ranges using International Normalized Ratio (INR) are: INR RANGE 2.0 - 3.0 Routine oral anticoagulant therapy 2.5 - 3.5 Oral anticoagulant therapy for patients with thromboembolic events on standard doses of Coumadin and those with mechanical heart valves. Blood Venipuncture / Unknown 04/12/2025 4:15 PM EDT 04/12/2025 4:19 PM EDT Farhad Meyers NM LAB BLOOD ORDERABLES Final Re sult Performing Organization Address City/[facility]/ZIP Co de Phone Number [facility] [address] [place] [address], [facility] [phone] * (ABNORMAL) Comprehensive metabolic panel (04/12/2025 4:15 PM EDT) [facility] Sodium 138 135 - 145 meq/L 04/12/2025 4:49 PM EDT [facility] Potassium 4.0 3.5 - 5.3 meq/L 04/12/2025 4:49 PM EDT [facility] Chloride 108 101 - 111 meq/L 04/12/2025 4:49 PM EDT [facility] CO2 23 21 - 31 meq/L 04/12/2025 4:49 PM EDT [facility] Calcium 8.9 8.5 - 10.5 mg/dL 04/12/2025 4:49 PM EDT [facility] Glucose 108(H) 74 - 100 mg/dL 04/12/2025 4:49 PM [facility] BUN 10 6 - 20 mg/dL 04/12/2025 4:49 PM [facility] Creatinine 0.67 0.50 - 1.20 mg/dL 04/12/2025 4:49 PM T [facility] BUN/Creatinine 15 04/12/2025 4:49 PM [facility] Albumin 3.1(L) 3.2 - 5.5 g/dL 04/12/2025 4:49 PM [facility] Alkaline Phosphatase 114 42 - 115 U/L 04/12/2025 4:49 PM [facility] ALT 12 5 - 50 U/L 04/12/2025 4:49 PM [facility] AST 15 10 - 42 U/L 04/12/2025 4:49 PM [facility] Total Bilirubin 0.8 0.0 - 1.0 mg/dL 04/12/2025 4:49 PM [facility] Protein, Total 6.5(L) 6.7 - 8.2 gm/dL 04/12/2025 4:49 PM [facility] Anion Gap 11 8 - 16 04/12/2025 4:49 PM [facility] A/G Ratio 0.9 04/12/2025 4:49 PM [facility] Globulin 3.4 g/dL 04/12/2025 4:49 PM [facility] Osmolality Calc 275.3 mOsm/kg 4:49 PM [facility] eGFR (mL/min/1.73m2) >60 >=60 mL/min/1.7 3m2 04/12/2025 4:49 PM [facility] Comment:ESTIMATED GFR IS NOT ACCURATE CREATININE CLEARANCE IN PREDICTING GLOMERULAR FILTRATION RATE. ESTIMATED GFR IS NOT APPLICABLE FOR DIALYSIS PATIENTS. Blood Venipuncture / Unknown 04/12/2025 4:15 PM EDT 04/12/2025 4:19 PM EDT us Farhad HAM LAB BLOOD ORDERABLES Final Re sult [facility] [address] [place] [address], [facility] [phone] * ECG 12 lead (04/12/2025) us Farhad HAM ECG ORDERABLES Final Result from Last 3 Months Insurance Care Teams Kiln Placer Relationship Specialty Start Date End Date [facility] Amber, [facility] [place] [address] PCP - General 04/12/25
== END 2025-05-02 23:59 ==
LOC: LAB.DROPOF 05-03 10:58
PROVIDERS: PCP Nurse Practitioner Family; Visit Provider Nurse Practitioner Acute Care
DX: R25.1 Tremor, unspecified (principal)
CPT/HCPCS: 80053; 84439; 84443; 85025

== ENCOUNTER 2025-05-11 23:46 | Emergency (ER) | payer OTHER, SELFPAY ==
--- OUTSIDE RECORDS SUMMARY | 2025-04-12 14:45 | XMS_ITS | Encounter Summary ---
Author Organization [employer] ([place], [place], [place], [place], [place]) Address [address] [place] [address] Care Team Providers Care Photocopy Operator Name Role Phone [facility] Amber, [facility]Doc Primary Care Provider Reason for Visit * Reason Comments Loss of Consciousness Pt reports fainti ng spells and shitting blood today Encounter Details Date Type Department Care Team (Late st Contact Info) Description 04/12/2025 3:45 PM EDT - 04/12/2025 5:36 PM EDT Emergency [facility] Emergency Department [address] [place] [address] Willy Cuevas H, DO [address] [place] [address] Syncope, unspecified syncope type (Primary Dx) Discharge [...] sent through Care Everywhere. * Syncope Adult [id number] (Tunisian) documented in this encounter ED Notes * Damian Dumont RN - 04/12/2025 5:36 PM EDT Called [facility] for transportation of patient back to their facility. Talked to outpatient case manager, whom states she will send someone to come pick patient up. Damian Dumont RN 04/12/251806 * Willy Cuevas DO - 04/12/2025 3:42 PM EDT Subjective Chief Complaint: Loss of Consciousness (Pt reports fainting spells and shitting blood today ) Patient is a 64-year-old male presenting from [facility] for medical evaluation. Patient states he arrived at [facility] last night to help him get off of methadone. States for the past couple weeks he has been having episodes of lightheadedness and syncope leading to falls. Says over the past couple days he has also been experiencing bright red blood with bowel movements. History provided by: Patient global compensation director used: No Loss of Consciousness Associated symptoms: [...] and incomplete right bundle branch block pattern. NV, QRS, and QT intervals within normal limits. [...] medications on file Contact information for follow-up [facility] [address] [facility] [address] Next Steps: Follow up Electronically Signed By Willy Cuevas DO 04/12/25 [id number] documented in this encounter Plan of Treatment [...] Urine Negative Negative 025 7:01 PM EDT [facility] Barbiturate Screen Negative Negative 2024 7:01 PM EDT [facility] Benzodiazepine Screen Negative Negative 7:01 PM EDT [facility] Cocaine (Metab.) Screen Negative Negative 04/12/2025 7:01 PM EDT [facility] Methadone Screen Negative Negative 04/12/20 25 7:01 PM EDT [facility] Opiate Screen Negative Negative 04/12/2025 7:01 PM EDT [facility] Phencyclidine Screen Negative Negative 03/16 7:01 PM EDT [facility] Tetrahydrocannabinol Positive(A ) Negative 04/12/2025 7:01 PM EDT [facility] Creatinine, Ur 89.80 mg/dL 04/12/2025 7:01 PM EDT [facility] Urine 04/12/2025 5:58 PM EDT 04/12/2025 6:04 PM EDT Narrative [facility] - 04/12/2025 7:01 PM EDT Clinical consideration and professional judgement should be applied to any [id number] test result, particularly when preliminary positive results are used. Positive results should be confirmed if used for clinical or legal purposes. Cutoff Values: UDS Amphetamines = 500 ng/mL UDS Barbiturates = 200 ng/mL UDS Benzodiazepines = 200 ng/mL UDS Cocaine = 300 ng/mL UDS Methadone = 300 ng/mL UDS PCP = 25 ng/mL UDS THC = 50 ng/mL [facility] Luigi PA URINE [place] [address], [facility] [phone] * (ABNORMAL) Urinalysis, Reflex Microscopic and Culture If Indicated (04/12/2025 5:58 PM EDT) Color, UA Yellow 04/12/2025 6:08 PM EDT [facility] Clarity, UA Clear Clear 04/12/2025 6:08 PM EDT [facility] Specific [place], UA 1.010 1.005 - 1.030 04/12/2025 6:08 PM EDT [facility] pH, UA 7.0 6.0 - 8.0 04/12/2025 6:08 PM EDT [facility] Leukocytes, UA Negative Negative 04/12/2025 6:08 PM EDT [facility] Nitrite, UA Negative Negative 04/12/2025 6:08 PM EDT [facility] Protein, UA Negative Negative 04/12/2025 6:08 PM EDT [facility] Glucose, UA Normal Normal 04/12/2025 6:08 PM EDT [facility] Ketones, UA Trace(A) Negative 04/12/2025 6:08 PM EDT [facility] Bilirubin, UA Negative Negative 04/12/2025 6:08 PM EDT [facility] Blood, UA Negative Negative 04/12/2025 6:08 PM EDT [facility] Urobilinogen, UA Normal Normal 04/12/2025 6:08 PM EDT [facility] Specimen Source Urine, Clean Catch 04/12/2025 6:08 PM EDT [facility] Urine URINE SPECIMEN COLLECTION, CLEAN CATCH / Unknown 04/12/2025 5:58 PM EDT 04/12/2025 6:04 PM EDT us Farhad Midland PA URINE ORDERABLES Final Result [facility] [address] [place] [address], [facility] [phone] * XR chest 1 view portable / [...] Hold for add-ons. 04/12/2025 6:00 PM EDT [facility] Comment:Auto resulted. Blood Venipuncture / Unknown 04/12/2025 4:17 PM EDT 04/12/2025 4:19 PM EDT Willy Cuevas DO LAB BLOOD ORDERABLES Final Res ult [facility] [address] [phone] * Red Top Extra Tubes (04/12/2025 4:17 PM EDT) HOLD SPECIMEN (SJ - BKR) Hold for add-ons. 04/12/2025 6:00 PM EDT [facility] Comment:Auto resulted. Blood (Blood, Veinous) Venipuncture / Unknown 04/12/2025 4:17 PM EDT 04/12/2025 4:19 PM EDT Willy Cuevas DO LAB BLOOD ORDERABLES Final Res ult [facility] [address] [place] [address] * Prothrombin time/INR (04/12/2025 4:15 PM EDT) Protime 10.8 9.0 - 12.0 seconds 04/12/2025 4:41 PM EDT [facility] INR 1.03 0.80 - 1.10 04/12/2025 4:41 PM EDT [facility] Comment: Recommended therapeutic ranges using International Normalized Ratio (INR) are: INR RANGE 2.0 - 3.0 Routine oral anticoagulant therapy 2.5 - 3.5 Oral anticoagulant therapy for patients with thromboembolic events on standard doses of Coumadin and those with mechanical heart valves. Blood Venipuncture / Unknown 04/12/2025 4:15 PM EDT 04/12/2025 4:19 PM EDT Farhad Meyers PA LAB BLOOD ORDERABLES Final Re sult [facility] [address] [place] [address] * aPTT (04/12/2025 4:15 PM EDT) aPTT 28.2 22.0 - 32.0 seconds 04/12/2025 4:41 PM EDT [facility] Blood Venipuncture / Unknown 04/12/2025 4:15 PM EDT 04/12/2025 4:19 PM EDT Farhad HAM LAB BLOOD ORDERABLES Final Re sult Performing Organization Address City/[facility]/ZIP Co de Phone Number [facility] [address] [place] [address] * (ABNORMAL) High Sensitivity Troponin I (04/12/2025 4:15 PM EDT) Pathologist [facility] Troponin I High Sensitivity (pg/mL) <3.0(L) 3 - 58.8 pg/mL 04/12/2025 4:51 PM EDT [facility] Comment: Troponin Result (pg/mL) *Interpretation 3-58.8 [...] ORDERABLES Final Re sult Performing Organization Address [facility] Co de Phone Number [facility] [address] [place] [address] * (ABNORMAL) Comprehensive metabolic panel (04/12/2025 4:15 PM EDT) Pathologist [facility] Sodium 138 135 - 145 meq/L 04/12/2025 4:49 PM EDT [facility] Potassium 4.0 3.5 - 5.3 meq/L 04/12/2025 4:49 PM EDT [facility] Chloride 108 101 - 111 meq/L 04/12/2025 4:49 PM EDT [facility] CO2 23 21 - 31 meq/L 04/12/2025 4:49 PM EDT [facility] Calcium 8.9 8.5 - 10.5 mg/dL 04/12/2025 4:49 PM [facility] Glucose 108(H) 74 - 100 mg/dL 04/12/2025 4:49 PM [facility] BUN 10 6 - 20 mg/dL 04/12/2025 4:49 PM [facility] Creatinine 0.67 0.50 - 1.20 mg/dL 04/12/2025 4:49 PM [facility] BUN/Creatinine 15 04/12/2025 4:49 PM [facility] Albumin 3.1(L) 3.2 - 5.5 g/dL 04/12/2025 4:49 PM [facility] Alkaline Phosphatase 114 42 - 115 U/L 04/12/2025 4:49 PM [facility] ALT 12 5 - 50 U/L 04/12/2025 4:49 PM [facility] AST 15 10 - 42 U/L 04/12/2025 4:49 PM [facility] Total Bilirubin 0.8 0.0 - 1.0 mg/dL 04/12/2025 4:49 PM [facility] Protein, Total 6.5(L) 6.7 - 8.2 gm/dL 04/12/2025 4:49 PM [facility] Anion Gap 11 8 - 16 04/12/2025 4:49 PM [facility] A/G Ratio 0.9 04/12/2025 4:49 PM [facility] Globulin 3.4 g/dL 04/12/2025 4:49 PM [facility] Osmolality Calc 275.3 mOsm/kg 4:49 PM [facility] eGFR (mL/min/1.73m2) >60 >=60 mL/min/1.7 3m2 04/12/2025 4:49 PM [facility] Comment:ESTIMATED GFR IS NOT ACCURATE CREATININE CLEARANCE IN PREDICTING GLOMERULAR FILTRATION RATE. ESTIMATED GFR IS NOT APPLICABLE FOR DIALYSIS PATIENTS. Blood Venipuncture / Unknown 04/12/2025 4:15 PM EDT 04/12/2025 4:19 PM EDT us Farhad HAM LAB BLOOD ORDERABLES Final Re sult [facility] [address] [place] [address], [facility] [phone] * (ABNORMAL) CBC with Auto Diff (04/12/2025 4:15 PM EDT) WBC 6.0 4.2 - 9.1 K/ L 04/12/2025 4:30 PM EDT [facility] RBC 4.39(L) 4.63 - 6.08 M/ L 04/12/2025 4:30 PM EDT [facility] Hemoglobin 13.5(L) 13.7 - 17.5 GM/DL 04/12/2025 4:30 PM EDT [facility] Hematocrit 39.2(L) 40.1 - 51.0 % 04/12/2025 4:30 PM EDT [facility] MCV 89 79 - 92 fL 04/12/2025 4:30 PM EDT [facility] MCH 30.8 25.7 - 32.2 pg 04/12/2025 4:30 PM EDT [facility] MCHC 34.4 32.3 - 36.5 GM/DL 04/12/2025 4:30 PM EDT [facility] RDW 12.8 11.6 - 14.4 % 04/12/2025 4:30 PM EDT [facility] Platelets 228 140 - 375 K/CU MM 04/12/2025 4:30 PM EDT [facility] MPV 9.9 9.4 - 12.4 fL 04/12/2025 4:30 PM EDT [facility] Nucleated Red Blood Cell 0.0 0 - 0.2 % 04/12/2025 4:30 PM EDT [facility] % Neutros 67 34 - 68 % 04/12/2025 4:30 PM EDT [facility] % Lymphs 23 22 - 53 % 04/12/2025 4:30 PM EDT [facility] % Monos 8 5 - 12 % 04/12/2025 4:30 PM EDT [facility] % Eos 1.2 1.0 - 7.0 % 04/12/2025 4:30 PM EDT [facility] % Baso 1 0 - 1 % 04/12/2025 4:30 PM EDT [facility] NRBC Absolute <0.01 0 - 0.012 K/ul 04/12/2025 4:30 PM EDT [facility] # Neutros 4.04 1.78 - 5.38 K/ L 04/12/2025 4:30 PM EDT [facility] # Lymphs 1.38 1.32 - 3.57 K/ L 04/12/2025 4:30 PM EDT [facility] # Monos 0.46 0.30 - 0.82 K/ L 04/12/2025 4:30 PM EDT [facility] # Eos 0.07 0.04 - 0.54 K/ L 04/12/2025 4:30 PM EDT [facility] # Baso 0.06 0.01 - 0.08 K/ L 04/12/2025 4:30 PM EDT [facility] % Imm Grans 0.20 0.01 - 0.43 % 04/12/2025 4:30 PM EDT [facility] # IG <0.03 0.00 - 0.03 K/uL 04/12/2025 4:30 PM EDT [facility] Blood Venipuncture / Unknown 04/12/2025 4:15 PM EDT 04/12/2025 4:19 PM EDT Narrative [facility] - 04/12/2025 4:30 PM EDT When [...] HAM LAB BLOOD ORDERABLES Final Re sult [facility] [address] [id number] [phone] * ECG 12 lead (04/12/2025) Farhad HAM [...] RN) documented in this encounter Care Teams Photocopy Operator Relationship Specialty Start Date End Date [facility], [facility] [place] [address] PCP - General 04/12/25 documented as of this encounter
--- OUTSIDE RECORDS SUMMARY | 2025-05-11 23:53 | XMS_ITS | Clinical Summary ---
Author Organization [facility] Address [address] [place] [address] Phone Care Team Providers Care Certified Meeting Professional Name Role Phone Unavailable Primary Care Provider [...]
--- OUTSIDE RECORDS SUMMARY | 2025-05-11 23:53 | XMS_ITS | Encounter Summary ---
Author Organization [employer] ([place], [place], [place], [place], [place]) Address [address] [place] [address] Care Team Providers Care Financial Aids Officer Name Role Phone [facility] Amber Find-A-Doc Primary Care Provider Encounter Details [...] on filedocumented in this encounter Care Teams Financial Aids Officer Relationship Specialty Start Date End Date [facility] Amber [facility] [place] [address] PCP - General 04/12/25 documented as of this encounter
--- OUTSIDE RECORDS SUMMARY | 2025-05-11 23:53 | XMS_ITS | Clinical Summary ---
Author Organization [employer] ([place], [place], [place], [place], [place]) Address [address] [place] [address] Care Team Providers Care Hospitality Associate Name Role Phone [facility] Amber Find-A-Doc Primary Care Provider Allergies No known active allergies Medications No known medications Encounters Date Type Department Care Team Description 04/12/2025 3:45 PM EDT - 04/12/2025 5:36 PM EDT Emergency [facility] Emergency Department [address] [place] [address] Willy Cuevas DO Syncope, unspecified [...] Color, UA Yellow 04/12/2025 6:08 PM EDT [facility] Clarity, UA Clear Clear 04/12/2025 6:08 PM EDT [facility] Specific Maynard, UA 1.010 1.005 - 1.030 04/12/2025 6:08 PM EDT [facility] pH, UA 7.0 6.0 - 8.0 04/12/2025 6:08 PM EDT [facility] Leukocytes, UA Negative Negative 04/12/2025 6:08 PM EDT [facility] Nitrite, UA Negative Negative 04/12/2025 6:08 PM EDT [facility] Protein, UA Negative Negative 04/12/2025 6:08 PM EDT [facility] Glucose, UA Normal Normal 04/12/2025 6:08 PM EDT [facility] Ketones, UA Trace(A) Negative 04/12/2025 6:08 PM EDT [facility] Bilirubin, UA Negative Negative 04/12/2025 6:08 PM EDT [facility] Blood, UA Negative Negative 04/12/2025 6:08 PM EDT [facility] Urobilinogen, UA Normal Normal 04/12/2025 6:08 PM EDT [facility] Specimen Source Urine, Clean Catch 04/12/2025 6:08 PM EDT [facility] Urine URINE SPECIMEN COLLECTION, CLEAN CATCH / Unknown 04/12/2025 5:58 PM EDT 04/12/2025 6:04 PM EDT Farhad HAM URINE ORDERABLES Final Result [facility] [address] [place] [address], [facility] [phone] * (ABNORMAL) Urine Drug Screen (04/12/2025 5:58 PM EDT) Amphetamine Urine Negative Negative 025 7:01 PM EDT [facility] Barbiturate Screen Negative Negative 2024 7:01 PM EDT [facility] Benzodiazepine Screen Negative Negative 7:01 PM EDT [facility] Cocaine (Metab.) Screen Negative Negative 04/12/2025 7:01 PM EDT [facility] Methadone Screen Negative Negative 04/12/20 25 7:01 PM EDT [facility] Opiate Screen Negative Negative 04/12/2025 7:01 PM EDT [facility] Phencyclidine Screen Negative Negative 03/16 7:01 PM EDT [facility] Tetrahydrocannabinol Positive(A ) Negative 04/12/2025 7:01 PM EDT [facility] Creatinine, Ur 89.80 mg/dL 04/12/2025 7:01 PM EDT [facility] Urine 04/12/2025 5:58 PM EDT 04/12/2025 6:04 PM EDT Narrative [facility] - 04/12/2025 7:01 PM EDT Clinical consideration and professional judgement should be applied to any [id number] test result, particularly when preliminary positive results [...] URINE ORDERABLES Final Result Performing Organization Address [facility]/ZIP Co de Phone Number [facility] [address] [place] [address], [facility] [phone] * XR chest 1 view portable / [...] Hold for add-ons. 04/12/2025 6:00 PM EDT [facility] Comment:Auto resulted. Blood Venipuncture / Unknown 04/12/2025 4:17 PM EDT 04/12/2025 4:19 PM EDT Willy Cuevas DO LAB BLOOD ORDERABLES Final Res ult [facility] [address] [place] [address], [facility] [phone] * Red Top Extra Tubes (04/12/2025 4:17 PM EDT) HOLD SPECIMEN (SJ - BKR) Hold for add-ons. 04/12/2025 6:00 PM EDT [facility] Comment:Auto resulted. Blood (Blood, Veinous) Venipuncture / Unknown 04/12/2025 4:17 PM EDT 04/12/2025 4:19 PM EDT Willy Cuevas DO LAB BLOOD ORDERABLES Final Res ult Performing Organization Address [facility]/ZIP Co de Phone Number [facility] [address] [place] [address], [facility] [phone] * (ABNORMAL) CBC with Auto Diff (04/12/2025 4:15 PM EDT) WBC 6.0 4.2 - 9.1 K/ L 04/12/2025 4:30 PM EDT [facility] RBC 4.39(L) 4.63 - 6.08 M/ L 04/12/2025 4:30 PM EDT [facility] Hemoglobin 13.5(L) 13.7 - 17.5 GM/DL 04/12/2025 4:30 PM EDT [facility] Hematocrit 39.2(L) 40.1 - 51.0 % 04/12/2025 4:30 PM EDT [facility] MCV 89 79 - 92 fL 04/12/2025 4:30 PM EDT [facility] MCH 30.8 25.7 - 32.2 pg 04/12/2025 4:30 PM EDT [facility] MCHC 34.4 32.3 - 36.5 GM/DL 04/12/2025 4:30 PM EDT [facility] RDW 12.8 11.6 - 14.4 % 04/12/2025 4:30 PM EDT [facility] Platelets 228 140 - 375 K/CU MM 04/12/2025 4:30 PM EDT [facility] MPV 9.9 9.4 - 12.4 fL 04/12/2025 4:30 PM EDT [facility] Nucleated Red Blood Cell 0.0 0 - 0.2 % 04/12/2025 4:30 PM EDT [facility] % Neutros 67 34 - 68 % 04/12/2025 4:30 PM EDT [facility] % Lymphs 23 22 - 53 % 04/12/2025 4:30 PM EDT [facility] % Monos 8 5 - 12 % 04/12/2025 4:30 PM EDT [facility] % Eos 1.2 1.0 - 7.0 % 04/12/2025 4:30 PM EDT [facility] % Baso 1 0 - 1 % 04/12/2025 4:30 PM EDT [facility] NRBC Absolute <0.01 0 - 0.012 K/ul 04/12/2025 4:30 PM EDT [facility] # Neutros 4.04 1.78 - 5.38 K/ L 04/12/2025 4:30 PM EDT [facility] # Lymphs 1.38 1.32 - 3.57 K/ L 04/12/2025 4:30 PM EDT [facility] # Monos 0.46 0.30 - 0.82 K/ L 04/12/2025 4:30 PM EDT [facility] # Eos 0.07 0.04 - 0.54 K/ L 04/12/2025 4:30 PM EDT [facility] # Baso 0.06 0.01 - 0.08 K/ L 04/12/2025 4:30 PM EDT [facility] % Imm Grans 0.20 0.01 - 0.43 % 04/12/2025 4:30 PM EDT [facility] # IG <0.03 0.00 - 0.03 K/uL 04/12/2025 4:30 PM EDT [facility] Blood Venipuncture / Unknown 04/12/2025 4:15 PM EDT 04/12/2025 4:19 PM EDT Narrative [facility] - 04/12/2025 4:30 PM EDT When [...] HAM LAB BLOOD ORDERABLES Final Re sult [facility] [address] [place] [address] * (ABNORMAL) High Sensitivity Troponin I (04/12/2025 4:15 PM EDT) [facility] Troponin I High Sensitivity (pg/mL) <3.0(L) 3 - 58.8 pg/mL 04/12/2025 4:51 PM EDT [facility] Comment: Troponin Result (pg/mL) *Interpretation 3-58.8 [...] HAM LAB BLOOD ORDERABLES Final Re sult [facility] [address] [place] [address] * aPTT (04/12/2025 4:15 PM EDT) [facility] aPTT 28.2 22.0 - 32.0 seconds 04/12/2025 4:41 PM EDT [facility] Blood Venipuncture / Unknown 04/12/2025 4:15 PM EDT 04/12/2025 4:19 PM EDT Farhad Meyers [place] LAB BLOOD ORDERABLES Final Re sult [facility] [address] [place] [address] * Prothrombin time/INR (04/12/2025 4:15 PM EDT) Pathologist [facility] Protime 10.8 9.0 - 12.0 seconds 04/12/2025 4:41 PM EDT [facility] INR 1.03 0.80 - 1.10 04/12/2025 4:41 PM EDT [facility] Comment: Recommended therapeutic ranges using International Normalized Ratio (INR) are: INR RANGE 2.0 - 3.0 Routine oral anticoagulant therapy 2.5 - 3.5 Oral anticoagulant therapy for patients with thromboembolic events on standard doses of Coumadin and those with mechanical heart valves. Blood Venipuncture / Unknown 04/12/2025 4:15 PM EDT 04/12/2025 4:19 PM EDT Farhad Meyers [place] LAB BLOOD ORDERABLES Final Re sult Performing Organization Address City/[facility]/ZIP Co de Phone Number [facility] [address] [place] [address], [facility] [phone] * (ABNORMAL) Comprehensive metabolic panel (04/12/2025 4:15 PM EDT) [facility] Sodium 138 135 - 145 meq/L 04/12/2025 4:49 PM EDT [facility] Potassium 4.0 3.5 - 5.3 meq/L 04/12/2025 4:49 PM EDT [facility] Chloride 108 101 - 111 meq/L 04/12/2025 4:49 PM EDT [facility] CO2 23 21 - 31 meq/L 04/12/2025 4:49 PM EDT [facility] Calcium 8.9 8.5 - 10.5 mg/dL 04/12/2025 4:49 PM EDT [facility] Glucose 108(H) 74 - 100 mg/dL 04/12/2025 4:49 PM [facility] BUN 10 6 - 20 mg/dL 04/12/2025 4:49 PM [facility] Creatinine 0.67 0.50 - 1.20 mg/dL 04/12/2025 4:49 PM T [facility] BUN/Creatinine 15 04/12/2025 4:49 PM [facility] Albumin 3.1(L) 3.2 - 5.5 g/dL 04/12/2025 4:49 PM [facility] Alkaline Phosphatase 114 42 - 115 U/L 04/12/2025 4:49 PM [facility] ALT 12 5 - 50 U/L 04/12/2025 4:49 PM [facility] AST 15 10 - 42 U/L 04/12/2025 4:49 PM [facility] Total Bilirubin 0.8 0.0 - 1.0 mg/dL 04/12/2025 4:49 PM [facility] Protein, Total 6.5(L) 6.7 - 8.2 gm/dL 04/12/2025 4:49 PM [facility] Anion Gap 11 8 - 16 04/12/2025 4:49 PM [facility] A/G Ratio 0.9 04/12/2025 4:49 PM [facility] Globulin 3.4 g/dL 04/12/2025 4:49 PM [facility] Osmolality Calc 275.3 mOsm/kg 4:49 PM [facility] eGFR (mL/min/1.73m2) >60 >=60 mL/min/1.7 3m2 04/12/2025 4:49 PM [facility] Comment:ESTIMATED GFR IS NOT ACCURATE CREATININE CLEARANCE IN PREDICTING GLOMERULAR FILTRATION RATE. ESTIMATED GFR IS NOT APPLICABLE FOR DIALYSIS PATIENTS. Blood Venipuncture / Unknown 04/12/2025 4:15 PM EDT 04/12/2025 4:19 PM EDT us Farhad HAM LAB BLOOD ORDERABLES Final Re sult [facility] [address] [place] [address], [facility] [phone] * ECG 12 lead (04/12/2025) us Farhad HAM ECG ORDERABLES Final Result from Last 3 Months Insurance Care Teams Hospitality Associate Relationship Specialty Start Date End Date [facility] Amber, Find[facility]Doc [facility] [place] [address] PCP - General 04/12/25
--- OUTSIDE RECORDS SUMMARY | 2025-05-11 23:53 | XMS_ITS | Referral Summary ---
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 Role Phone [facility] Amber, Find-A-Doc Primary Care Provider Encounters Date Type Department Care Team Description 04/12/2025 Travel 04/12/2025 3:45 PM EDT - 04/12/2025 5:36 PM EDT Emergency [facility] Emergency Department [address] [place] [address] Willy Cuevas DO Syncope, unspecified [...] Color, UA Yellow 04/12/2025 6:08 PM EDT [facility] Clarity, UA Clear Clear 04/12/2025 6:08 PM EDT [facility] Specific [place], UA 1.010 1.005 - 1.030 04/12/2025 6:08 PM EDT [facility] pH, UA 7.0 6.0 - 8.0 04/12/2025 6:08 PM EDT [facility] Leukocytes, UA Negative Negative 04/12/2025 6:08 PM EDT [facility] Nitrite, UA Negative Negative 04/12/2025 6:08 PM EDT [facility] Protein, UA Negative Negative 04/12/2025 6:08 PM EDT [facility] Glucose, UA Normal Normal 04/12/2025 6:08 PM EDT [facility] Ketones, UA Trace(A) Negative 04/12/2025 6:08 PM EDT [facility] Bilirubin, UA Negative Negative 04/12/2025 6:08 PM EDT [facility] Blood, UA Negative Negative 04/12/2025 6:08 PM EDT [facility] Urobilinogen, UA Normal Normal 04/12/2025 6:08 PM EDT [facility] Specimen Source Urine, Clean Catch 04/12/2025 6:08 PM EDT [facility] Urine URINE SPECIMEN COLLECTION, CLEAN CATCH / Unknown 04/12/2025 5:58 PM EDT 04/12/2025 6:04 PM EDT us Farhad HAM URINE ORDERABLES Final Result Performing Organization Address [facility]/State/ZIP Co de Phone Number [facility] [address] [place] [address] * (ABNORMAL) Urine Drug Screen (04/12/2025 5:58 PM EDT) Amphetamine Urine Negative Negative 025 7:01 PM EDT [facility] Barbiturate Screen Negative Negative 2024 7:01 PM EDT [facility] Benzodiazepine Screen Negative Negative 7:01 PM EDT [facility] Cocaine (Metab.) Screen Negative Negative 04/12/2025 7:01 PM EDT [facility] Methadone Screen Negative Negative 04/12/20 7:01 PM EDT [facility] Opiate Screen Negative Negative 04/12/2025 7:01 PM EDT [facility] Phencyclidine Screen Negative Negative 03/16 7:01 PM EDT [facility] Tetrahydrocannabinol Positive(A ) Negative 04/12/2025 7:01 PM EDT [facility] Creatinine, Ur 89.80 mg/dL 04/12/2025 7:01 PM EDT [facility] Urine 04/12/2025 5:58 PM EDT 04/12/2025 6:04 PM EDT Narrative [facility] - 04/12/2025 7:01 PM EDT Clinical consideration and professional judgement should be applied to any [id number] test result, particularly when preliminary positive results [...] URINE ORDERABLES Final Result Performing Organization Address City/State/[facility] Co de Phone Number [facility] [address] [phone] * XR chest 1 view portable / [...] Hold for add-ons. 04/12/2025 6:00 PM EDT [facility] Comment:Auto resulted. Blood Venipuncture / Unknown 04/12/2025 4:17 PM EDT 04/12/2025 4:19 PM EDT [employer] LAB BLOOD ORDERABLES Final Res ult Performing Organization Address City/[facility]/ZIP Co de Phone Number [facility] [address] [place] [address] * Red Top Extra Tubes (04/12/2025 4:17 PM EDT) HOLD SPECIMEN (SJ - BKR) Hold for add-ons. 04/12/2025 6:00 PM EDT [facility] Comment:Auto resulted. Blood (Blood, Veinous) Venipuncture / Unknown 04/12/2025 4:17 PM EDT 04/12/2025 4:19 PM EDT [employer] LAB BLOOD ORDERABLES Final Res ult Performing Organization Address City/[facility]/ZIP Co de Phone Number [facility] [address] [place] [address] * (ABNORMAL) CBC with Auto Diff (04/12/2025 4:15 PM EDT) WBC 6.0 4.2 - 9.1 K/ L 04/12/2025 4:30 PM EDT [facility] RBC 4.39(L) 4.63 - 6.08 M/ L 04/12/2025 4:30 PM EDT [facility] Hemoglobin 13.5(L) 13.7 - 17.5 GM/DL 04/12/2025 4:30 PM EDT [facility] Hematocrit 39.2(L) 40.1 - 51.0 % 04/12/2025 4:30 PM EDT [facility] MCV 89 79 - 92 fL 04/12/2025 4:30 PM EDT [facility] MCH 30.8 25.7 - 32.2 pg 04/12/2025 4:30 PM EDT [facility] MCHC 34.4 32.3 - 36.5 GM/DL 04/12/2025 4:30 PM EDT [facility] RDW 12.8 11.6 - 14.4 % 04/12/2025 4:30 PM EDT [facility] Platelets 228 140 - 375 K/CU MM 04/12/2025 4:30 PM EDT [facility] MPV 9.9 9.4 - 12.4 fL 04/12/2025 4:30 PM EDT [facility] Nucleated Red Blood Cell 0.0 0 - 0.2 % 04/12/2025 4:30 PM EDT [facility] % Neutros 67 34 - 68 % 04/12/2025 4:30 PM EDT [facility] % Lymphs 23 22 - 53 % 04/12/2025 4:30 PM EDT [facility] % Monos 8 5 - 12 % 04/12/2025 4:30 PM EDT [facility] % Eos 1.2 1.0 - 7.0 % 04/12/2025 4:30 PM EDT [facility] % Baso 1 0 - 1 % 04/12/2025 4:30 PM EDT [facility] NRBC Absolute <0.01 0 - 0.012 K/ul 04/12/2025 4:30 PM EDT [facility] # Neutros 4.04 1.78 - 5.38 K/ L 04/12/2025 4:30 PM EDT [facility] # Lymphs 1.38 1.32 - 3.57 K/ L 04/12/2025 4:30 PM EDT [facility] # Monos 0.46 0.30 - 0.82 K/ L 04/12/2025 4:30 PM EDT [facility] # Eos 0.07 0.04 - 0.54 K/ L 04/12/2025 4:30 PM EDT [facility] # Baso 0.06 0.01 - 0.08 K/ L 04/12/2025 4:30 PM EDT [facility] % Imm Grans 0.20 0.01 - 0.43 % 04/12/2025 4:30 PM EDT [facility] # IG <0.03 0.00 - 0.03 K/uL 04/12/2025 4:30 PM EDT [facility] Blood Venipuncture / Unknown 04/12/2025 4:15 PM EDT 04/12/2025 4:19 PM EDT Narrative [facility] - 04/12/2025 4:30 PM EDT [...] HAM LAB BLOOD ORDERABLES Final Re sult [facility] [address] [phone] * (ABNORMAL) High Sensitivity Troponin I (04/12/2025 4:15 PM EDT) Troponin I High Sensitivity (pg/mL) <3.0(L) 3 - 58.8 pg/mL 04/12/2025 4:51 PM EDT [facility] Comment: Troponin Result (pg/mL) *Interpretation [...] 4:15 PM EDT 04/12/2025 4:19 PM EDT Alereead PA LAB BLOOD ORDERABLES Final Re sult Performing Organization Address City/[facility]/ZIP Co de Phone Number [facility] [address] [place] [address] * aPTT (04/12/2025 4:15 PM EDT) aPTT 28.2 22.0 - 32.0 seconds 04/12/2025 4:41 PM EDT [facility] Blood Venipuncture / Unknown 04/12/2025 4:15 PM EDT 04/12/2025 4:19 PM EDT Alereead PA LAB BLOOD ORDERABLES Final Re sult [facility] [address] [place] [address] * Prothrombin time/INR (04/12/2025 4:15 PM EDT) Protime 10.8 9.0 - 12.0 seconds 04/12/2025 4:41 PM EDT [facility] INR 1.03 0.80 - 1.10 04/12/2025 4:41 PM EDT [facility] Comment: Recommended therapeutic ranges using [...] HAM LAB BLOOD ORDERABLES Final Re sult [facility] [address] [phone] * (ABNORMAL) Comprehensive metabolic panel (04/12/2025 4:15 PM EDT) Sodium 138 135 - 145 meq/L 04/12/2025 4:49 PM EDT [facility] Potassium 4.0 3.5 - 5.3 meq/L 04/12/2025 4:49 PM EDT [facility] Chloride 108 101 - 111 meq/L 04/12/2025 4:49 PM EDT [facility] CO2 23 21 - 31 meq/L 04/12/2025 4:49 PM EDT [facility] Calcium 8.9 8.5 - 10.5 mg/dL 04/12/2025 4:49 PM EDT [facility] Glucose 108(H) 74 - 100 mg/dL 04/12/2025 4:49 PM EDT [facility] BUN 10 6 - 20 mg/dL 04/12/2025 4:49 PM EDT [facility] Creatinine 0.67 0.50 - 1.20 mg/dL 04/12/2025 4:49 PM EDT [facility] BUN/Creatinine 15 04/12/2025 4:49 PM EDT [facility] Albumin 3.1(L) 3.2 - 5.5 g/dL 04/12/2025 4:49 PM EDT [facility] Alkaline Phosphatase 114 42 - 115 U/L 04/12/2025 4:49 PM EDT [facility] ALT 12 5 - 50 U/L 04/12/2025 4:49 PM EDT [facility] AST 15 10 - 42 U/L 04/12/2025 4:49 PM EDT [facility] Total Bilirubin 0.8 0.0 - 1.0 mg/dL 04/12/2025 4:49 PM EDT [facility] Protein, Total 6.5(L) 6.7 - 8.2 gm/dL 04/12/2025 4:49 PM EDT [facility] Anion Gap 11 8 - 16 04/12/2025 4:49 PM EDT [facility] A/G Ratio 0.9 04/12/2025 4:49 PM EDT [facility] Globulin 3.4 g/dL 04/12/2025 4:49 PM EDT [facility] Osmolality Calc 275.3 mOsm/kg 4:49 PM EDT [facility] eGFR (mL/min/1.73m2) >60 >=60 mL/min/1.7 3m2 04/12/2025 4:49 PM EDT [facility] Comment:ESTIMATED GFR IS NOT ACCURATE CREATININE CLEARANCE IN PREDICTING GLOMERULAR FILTRATION RATE. ESTIMATED GFR IS NOT APPLICABLE FOR DIALYSIS PATIENTS. Blood Venipuncture / Unknown 04/12/2025 4:15 PM EDT 04/12/2025 4:19 PM EDT Farhad HAM LAB BLOOD ORDERABLES Final Re sult [facility] [address] [place] [address], [facility] [phone] * ECG 12 lead (04/12/2025) Farhad HAM ECG ORDERABLES Final Result from Last 3 Months Insurance [employer] [place] Care Teams Farm Management Professor Relationship Specialty Start Date End Date [facility] Connection, Find-A-Doc [facility] Amber Find-a-Doc [place] [id number] PCP - General 04/12/25
[2025-05-11 23:59] VITALS: BP 101/74; PULSE 92; RESP 16; TEMP 36.5; O2SAT 96; BMI 19.0
--- NOTE | 2025-05-12 00:18 | CT_ITS ---
PROCEDURE INFORMATION: Exam: CTA Chest With Contrast Exam date and time: 05/12/2025 1:08 AM Age: 65 years old Clinical indication: Pain; Other: Trauma; Additional info: Trauma, critical injury suspected. Multiple episodes of passing out and falling, spanning over several months. PT C/O abdominal pain, diarrhea, and neck pain. TECHNIQUE: Imaging protocol: Computed tomographic angiography of the chest with contrast. Exam focused on the arteries. 3D rendering (Not supervised by radiologist): MIP and/or 3D reconstructed images were created by the technologist. Radiation optimization: All CT scans at this facility use at least one of these dose optimization techniques: automated exposure control; mA and/or kV adjustment per patient size (includes targeted exams where dose is matched to clinical indication); or iterative reconstruction. Contrast material: ISOVUE 370; Contrast volume: 90 ml; Contrast route: INTRAVENOUS (IV); COMPARISON: CT ANGIO NECK 05/12/2025 1:04 AM FINDINGS: Pulmonary arteries: No CT evidence of acute pulmonary embolus. Great vessels off aortic arch: Bovine variant branching pattern seen at the thoracic aorta Aorta: No aortic dissection. Trachea: Trace sputum is seen in the trachea Lungs: Left lower lobe calcified granuloma Pleural spaces: No pleural effusion. No pneumothorax. Heart: Unremarkable. No cardiomegaly. No pericardial effusion. Coronary arteries: No coronary artery calcifications. Lymph nodes: Unremarkable. No enlarged lymph nodes. Bones/joints: Unremarkable. No acute fracture. Soft tissues: Unremarkable. Other findings: Mild emphysema IMPRESSION: 1. No CT evidence of aortic injury 2. Mild emphysema 3. No acute pulmonary embolus
--- NOTE | 2025-05-12 00:18 | CT_ITS ---
PROCEDURE INFORMATION: Exam: CT Thoracic Spine Without Contrast Exam date and time: 05/12/2025 12:50 AM Age: 65 years old Clinical indication: Pain in thoracic spine; Additional info: Midline back pain, le weakness, incontinence. Multiple episodes of passing out and falling, spanning over several months. PT C/O abdominal pain, diarrhea, and neck pain. TECHNIQUE: Imaging protocol: Computed tomography of the thoracic spine without contrast. Radiation optimization: All CT scans at this facility use at least one of these dose optimization techniques: automated exposure control; mA and/or kV adjustment per patient size (includes targeted exams where dose is matched to clinical indication); or iterative reconstruction. COMPARISON: CT THORACIC SPINE WO CON 05/12/2025 12:50 AM FINDINGS: Bones/joints: Slight rightward curvature of the thoracic spine malalignment. Bony central canal is widely patent Soft tissues: Unremarkable. Other findings: Posterior elements appear normal. IMPRESSION: No acute thoracic spine fracture.
--- NOTE | 2025-05-12 00:18 | CT_ITS ---
PROCEDURE INFORMATION: Exam: CT Lumbar Spine Without Contrast Exam date and time: 05/12/2025 12:53 AM Age: 65 years old Clinical indication: Pain; Other: Trauma; Additional info: Midline back pain, le weakness, incontinence. Multiple episodes of passing out and falling, spanning over several months. PT C/O abdominal pain, diarrhea, and neck pain. TECHNIQUE: Imaging protocol: Computed tomography of the lumbar spine without contrast. Radiation optimization: All CT scans at this facility use at least one of these dose optimization techniques: automated exposure control; mA and/or kV adjustment per patient size (includes targeted exams where dose is matched to clinical indication); or iterative reconstruction. COMPARISON: MR LUMBAR SPINE WO/W CON 01/03/2025 2:55 PM FINDINGS: Bones/joints: Mild diffuse decreased disc space height this demonstrated throughout majority of the lumbar spine sparing the L4-L5 level. Bony central canal is widely patent Soft tissues: Unremarkable. Distended urinary bladder. IMPRESSION: No acute lumbar spine fracture.
--- NOTE | 2025-05-12 00:18 | CT_ITS ---
PROCEDURE INFORMATION: Exam: CT Cervical Spine Without Contrast Exam date and time: 05/12/2025 12:47 AM Age: 65 years old Clinical indication: Neck pain; Additional info: Midline back pain, le weakness, incontinence. Multiple episodes of passing out and falling, spanning over several months. PT C/O abdominal pain, diarrhea, and neck pain. TECHNIQUE: Imaging protocol: Computed tomography of the cervical spine without contrast. Radiation optimization: All CT scans at this facility use at least one of these dose optimization techniques: automated exposure control; mA and/or kV adjustment per patient size (includes targeted exams where dose is matched to clinical indication); or iterative reconstruction. COMPARISON: No relevant prior studies available. FINDINGS: Vertebrae: No acute fracture. Minimal anterolisthesis of C4 on C5. Minimal retrolisthesis of C5 on C6. Straightening of cervical spine. Facet osteoarthrosis with partial fusion within cervical spine. Degenerative changes of atlantodental articulation. Moderate degenerative disc disease at C4-C5 level. Severe degenerative disc disease at C5-C6, C6-C7 levels. Teeth: Multiple periapical lucencies/caries compatible with dental disease. Lungs: Emphysematous changes. Probable mild apical scarring. Vasculature: Atherosclerotic disease of carotid arteries. Soft tissues: Minimal RIGHT maxillary soft tissue swelling. IMPRESSION: No fracture.
--- NOTE | 2025-05-12 00:18 | CT_ITS ---
PROCEDURE INFORMATION: Exam: CT Head Without Contrast Exam date and time: 05/12/2025 12:45 AM Age: 65 years old Clinical indication: Pain; Other: Trauma; Additional info: Multiple episodes of passing out and falling, spanning over several months. PT C/O abdominal pain, diarrhea, and neck pain. TECHNIQUE: Imaging protocol: Computed tomography of the head without contrast. Radiation optimization: All CT scans at this facility use at least one of these dose optimization techniques: automated exposure control; mA and/or kV adjustment per patient size (includes targeted exams where dose is matched to clinical indication); or iterative reconstruction. COMPARISON: CT HEAD/BRAIN WO CON 11/28/2024 10:49 PM FINDINGS: Brain: Moderate atrophy. No intracranial hemorrhage. No mass. Few scattered foci of decreased attenuation within periventricular/subcortical white matter. No edema. Cerebral ventricles: No hydrocephalus. Mastoid air cells: No significant effusion. Bones: No calvarial fracture. Soft tissues: Small lipoma along RIGHT frontal scalp. IMPRESSION: 1. No intracranial hemorrhage. 2. Probable chronic microvascular ischemic changes. 3. See facial bone CT report for additional details.
--- NOTE | 2025-05-12 00:18 | CT_ITS ---
PROCEDURE INFORMATION: Exam: CTA Neck With Contrast Exam date and time: 05/12/2025 1:04 AM Age: 65 years old Clinical indication: Pain; Headache; Additional info: Multiple falls, hallucinations. Multiple episodes of passing out and falling, spanning over several months. PT C/O abdominal pain, diarrhea, and neck pain. TECHNIQUE: Imaging protocol: Computed tomographic angiography of the neck with contrast. Exam focused on the cervical segments of the vasculature. 3D rendering (Not supervised by radiologist): MIP and/or 3D reconstructed images were created by the technologist. Radiation optimization: All CT scans at this facility use at least one of these dose optimization techniques: automated exposure control; mA and/or kV adjustment per patient size (includes targeted exams where dose is matched to clinical indication); or iterative reconstruction. Contrast material: ISOVUE 370; Contrast volume: 80 ml; Contrast route: INTRAVENOUS (IV); COMPARISON: CT CERVICAL SPINE WO CON 05/12/2025 12:47 AM FINDINGS: Right common carotid artery: Normal. No stenosis. No dissection or occlusion. Right internal carotid artery: Moderate calcific plaque in the right carotid bulb and proximal most ICA segments. No stenosis. No dissection or occlusion. Right external carotid artery: Normal. No stenosis. No dissection or occlusion. Left common carotid artery: Variant origin from the brachiocephalic artery. No stenosis. No dissection or occlusion. Left internal carotid artery: Mild-moderate calcific plaque in the left carotid bulb and proximal most ICA segment. No stenosis. No dissection or occlusion. Left external carotid artery: Normal. No stenosis. No dissection or occlusion. Right vertebral artery: Moderate ostial calcific plaque without significant stenosis. Cervical segment otherwise unremarkable. No stenosis. No dissection or occlusion. Left vertebral artery: Left vertebral artery is mildly dominant. No stenosis. No dissection or occlusion. Brachiocephalic artery: The brachiocephalic artery is unremarkable. Right subclavian artery: The right subclavian artery is unremarkable. Left subclavian artery: The left subclavian artery demonstrates mild calcific plaque without stenosis. Aorta: The visualized aortic arch demonstrates mild ectasia and calcific plaque without evidence of dissection or gross aneurysm. Thyroid: The thyroid gland is unremarkable. Soft tissues: No significant soft tissue swelling or hematoma. Bones/joints: No acute osseous abnormalities are identified. Moderate disc space narrowing with mild marginal spurring C5-C6 and C6-C7. Lungs: Moderate emphysematous changes in the pulmonary apices, with mild bilateral apical pleuroparenchymal scarring. IMPRESSION: 1. No acute vascular abnormalities. No evidence of arterial occlusion or significant stenosis. 2. Nonemergent findings detailed above. REFERENCES: NASCET CRITERIA. The degree of stenosis in the cervical segment of the internal carotid artery is based on NASCET criteria. Normal is no stenosis. Mild is less than 50% stenosis. Moderate is 50-69% stenosis. Severe is 70% to 99% stenosis. Total occlusion is no detectable patent lumen.
--- NOTE | 2025-05-12 00:18 | CT_ITS ---
PROCEDURE INFORMATION: Exam: CTA Abdomen and Pelvis With Contrast Exam date and time: 05/12/2025 1:08 AM Age: 65 years old Clinical indication: Pain; Other: Trauma; Additional info: Trauma, critical injury suspected. Multiple episodes of passing out and falling, spanning over several months. PT C/O abdominal pain, diarrhea, and neck pain. TECHNIQUE: Imaging protocol: Computed tomographic angiography of the abdomen and pelvis with contrast. Exam focused on the arteries. 3D rendering (Not supervised by radiologist): MIP and/or 3D reconstructed images were created by the technologist. Radiation optimization: All CT scans at this facility use at least one of these dose optimization techniques: automated exposure control; mA and/or kV adjustment per patient size (includes targeted exams where dose is matched to clinical indication); or iterative reconstruction. Contrast material: ISOVUE 370; Contrast volume: 90 ml; Contrast route: INTRAVENOUS (IV); COMPARISON: CT LUMBAR SPINE WO CON 05/12/2025 12:53 AM FINDINGS: Aorta: No aortic aneurysm. No aortic dissection. Celiac and mesenteric arteries: No occlusion or significant stenosis. Renal arteries: No occlusion or significant stenosis. Right iliac arteries: No occlusion or significant stenosis. Left iliac arteries: No occlusion or significant stenosis. Liver: No mass. Gallbladder and biliary ducts: Unremarkable. No calcified stones. No ductal dilation. Pancreas: Unremarkable. No mass. No ductal dilation. Spleen: Unremarkable. No splenomegaly. Adrenal glands: Unremarkable. No mass. Kidneys and ureters: Unremarkable. No solid mass. No hydronephrosis. Stomach and bowel: Unremarkable. No obstruction. No mucosal thickening. Appendix: No evidence of appendicitis. Intraperitoneal space: Unremarkable. No free air. No significant fluid collection. Lymph nodes: Unremarkable. No enlarged lymph nodes. Urinary bladder: Distended urinary bladder with ureteral jets identified. Urinary bladder distended up to 12.5 cm Reproductive: Unremarkable as visualized. Bones/joints: No acute fracture. Soft tissues: Unremarkable. IMPRESSION: 1. No CT evidence of aortic dissection 2. Normal CT angiogram abdomen pelvis.
--- NOTE | 2025-05-12 00:18 | CT_ITS ---
PROCEDURE INFORMATION: Exam: CTA Head With Contrast, Arteriography Exam date and time: 05/12/2025 1:04 AM Age: 65 years old Clinical indication: Pain; Headache; Additional info: Multiple falls, hallucinations. Multiple episodes of passing out and falling, spanning over several months. PT C/O abdominal pain, diarrhea, and neck pain. TECHNIQUE: Imaging protocol: Computed tomographic angiography of the head with contrast. Exam focused on the arteries. 3D rendering (Not supervised by radiologist): MIP and/or 3D reconstructed images were created by the technologist. Radiation optimization: All CT scans at this facility use at least one of these dose optimization techniques: automated exposure control; mA and/or kV adjustment per patient size (includes targeted exams where dose is matched to clinical indication); or iterative reconstruction. Contrast material: ISOVUE 370; Contrast volume: 80 ml; Contrast route: INTRAVENOUS (IV); COMPARISON: CT HEAD/BRAIN WO CON 05/12/2025 12:45 AM FINDINGS: ANTERIOR CIRCULATION: Right internal carotid artery: Right ICA petrous segment is unremarkable. Cavernous segment demonstrates mild calcific plaque without stenosis. Supraclinoid segment is unremarkable. Right middle cerebral artery: Unremarkable. No occlusion or significant stenosis. No aneurysm. Right anterior cerebral artery: Unremarkable. No occlusion or significant stenosis. No aneurysm. The anterior communicating artery is unremarkable. Left internal carotid artery: The left ICA petrous, cavernous, and supraclinoid segments are unremarkable. Left middle cerebral artery: Unremarkable. No occlusion or significant stenosis. No aneurysm. Left anterior cerebral artery: Unremarkable. No occlusion or significant stenosis. No aneurysm. POSTERIOR CIRCULATION: Right vertebral artery: Unremarkable. No occlusion or significant stenosis. No aneurysm. Left vertebral artery: Left vertebral artery is mildly dominant. No occlusion or significant stenosis. No aneurysm. 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 No aneurysm or dissection. No stenosis or occlusion. Mid and distal basilar artery segments are unremarkable. Right posterior cerebral artery: Unremarkable. No occlusion or significant stenosis. No aneurysm. Left posterior cerebral artery: Unremarkable. No occlusion or significant stenosis. No aneurysm. Veins: The dural venous sinuses and major cortical veins enhance appropriately without evidence of thrombosis. Brain: No enhancing brain lesions or vascular malformations are identified. Mild generalized cerebral/cerebellar atrophy. Cerebral ventricles: Mild-moderate compensatory ventriculomegaly secondary to central atrophy. Paranasal sinuses: Mucous retention cyst versus polyp formation in the left sphenoid sinus suggesting mild chronic sinus inflammatory disease. No fluid levels. Visualized paranasal sinuses are otherwise clear. Teeth: Severe dental caries and periodontal disease. Bones/joints: No acute fracture. Soft tissues: No acute soft tissue abnormalities. Small right frontal scalp lipoma again noted. IMPRESSION: 1. No acute vascular abnormalities. No evidence of large vessel occlusion or significant stenosis. 2. 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 No evidence of associated aneurysm, dissection, or stenosis. 3. Severe dental caries and periodontal disease.
--- NOTE | 2025-05-12 00:19 | CT_ITS ---
PROCEDURE INFORMATION: Exam: CT Maxillofacial Without Contrast Exam date and time: 05/12/2025 12:57 AM Age: 65 years old Clinical indication: Pain; Other: Trauma; Additional info: Multiple falls, hallucinations, facial pain. Multiple episodes of passing out and falling, spanning over several months. PT C/O abdominal pain, diarrhea, and neck pain. TECHNIQUE: Imaging protocol: Computed tomography of the face without contrast. Radiation optimization: All CT scans at this facility use at least one of these dose optimization techniques: automated exposure control; mA and/or kV adjustment per patient size (includes targeted exams where dose is matched to clinical indication); or iterative reconstruction. COMPARISON: No relevant prior studies available. FINDINGS: Paranasal sinuses: Few tiny/small retention cysts. No air-fluid levels. Orbital cavities: Unremarkable as visualized. Teeth: Multiple periapical lucencies/caries compatible with dental disease. Bones: No acute fracture. Degenerative changes of cervical spine. Soft tissues: Minimal RIGHT maxillary soft tissue swelling. Small lipoma along RIGHT frontal scalp. IMPRESSION: No fracture.
[2025-05-12 00:30] LABS: VBG HCO3 20.7 mmol/L (23-30); VBG PCO2 37.8 mmol/L (35-51); VBG PH 7.36 mmol/L (7.31-7.41); VBG PO2 26.4 mmol/L (28-40)
[2025-05-12 00:32] LABS: Lactate Venous 3.5 mmol/L (0.4-2.0)
--- NOTE | 2025-05-12 00:32 | ECG_ITS ---
APPROVED REPORT Exam: Resting ECG HR:84 bpm ECG Measurements Heart Rate 84 AXES MD 146 P -29 QRSd 146 QRS 30 QT 377 T 60 QTc 418 Conclusion sinus rhythm. marked artifact limits interpretation. non-specific st changes UNCONFIRMED REPORT Electronically signed by : DANIA GRAJEDA, 05/13/2025 01:08:34
[2025-05-12 00:34] LABS: Hematocrit 47.9 % (42.0-52.0); Hemoglobin 16.7 g/dL (14.1-18.0); Immature Granulocytes % 0.4 %; Mean Corpuscular HGB Conc 34.9 g/dL (31.8-35.4); Mean Corpuscular Hemoglobin 30.9 pg (27.0-31.2); Mean Corpuscular Volume 88.7 fl (80-94); Nucleated Red Blood Cells % 0 %; Platelet Count 349 K/mm3 (142-424); Red Blood Count 5.40 M/mm3 (4.60-6.20); Red Cell Distribution Width-SD 42.8 fL; White Blood Count 11.9 K/mm3 (4.8-10.8)
[2025-05-12] MEDS: 0.9 % SODIUM CHLORIDE 1000ML 1,000 ML 999 ML IV (00:43)
--- NOTE | 2025-05-12 00:44 | ED_ITS ---
Discharge Plan Disposition Patient Disposition: Xfer Other Prescriptions Prescriptions: No Action lorazepam 1 mg tablet 1 mg PO BID PRN (Reason: anxiety) Qty: 30 0RF ropinirole 0.5 mg tablet 0.5 mg PO QHS Qty: 90 1RF amitriptyline 50 mg tablet 50 mg PO DAILY Qty: 90 1RF cyclobenzaprine 10 mg tablet 10 mg PO TID PRN (Reason: muscle spasm) Qty: 60 0RF omeprazole 20 mg capsule,delayed release(DR/EC) 20 mg PO DAILY Qty: 90 2RF hydroxyzine HCl 50 mg tablet See Rx Instructions .ROUTE .COMPLEX Qty: 30 0RF Dose Instruction: TAKE 1 TABLET ORALLY THREE TIMES A DAY NEEDED FOR ANXIETY Rx Instructions: TAKE 1 TABLET ORALLY THREE TIMES A DAY NEEDED FOR ANXIETY Referrals Follow up/Referrals: Torrey Ruggiero APRN [Primary Care Provider, Family Practice] - See instructions Clinical Impressions Clinical Impression: Bilateral leg weakness, Back pain, Confabulation, Bowel incontinence, Bladder incontinence, Hallucination Stand Alone Forms Stand Alone Forms: Transfer Record - ED Instructions Patient Instructions: DI for Syncope in Adults (Fainting), DI for Syncope in Children (Fainting) Print Language Print Language: [place] Discharge ED Provider: Khang Montenegro General Adult HPI General Chief complaint: Syncope Stated complaint: Hallucination;Syncope;Burning when Urinitating Time Seen by Provider: 05/11/25 23:50 Mode of Arrival: Family Vehicle Source of Information: Patient and Spouse Description of Symptoms (Recalled from ER Triage Doc. by RN): Pt presents to the ED accompanied by his for mutiple complaints. Pt's reports that the pt has been hallucinating and passing out over that last 2 days. Pt's also reports that the pt has had problems passing out for a while now but rpeorts the episode has became mr frequent over the last 2 days. She also rpeorts that the pt has fallen several times. Pt also reports that the pt got out of rehab for cratum and methadone X 1 month ago. History of Present Illness HPI narrative: 65-year-old male presents for numerous complaints. He has a history of smoking, has a history of various addictions. He reports that he stopped alcohol several months ago and has been off of methadone and kratom and other drugs for at least a couple of months. He does still sometimes take gabapentin. He is here tonight because he has been hallucinating, he has been passing out, and he has had falls. He is no longer able to walk either. Regarding hallucinations, about a week ago he started having more vivid dreams and he has been hallucinating things that clearly have not happened. Seems to be describing both audio and visual hallucinations. He told several stories that are not true according his . Possibly confabulating. He denies any history of psychosis previous to this. Has been worsening over the last couple of days. No headaches. he also reports that he has been passing out much more frequently over the last week or so. When he gets up, he gets lightheaded and things go away and he wakes up on the floor. No preceding chest pain or shortness of breath. He has fallen multiple times today. Yesterday he fell and hit his back and has been experiencing severe back pain since then. Describes pain in the midline lower back. He reports that he has not been able to walk correctly since the fall. Reports that his right foot is tremoring and he cannot make it stop. He denies significant pain in his legs. Denies any numbness in his groin. Reports severe bilateral lower extremity weakness. No reported fevers at home. Related Data Previous Rx's ?Medication ?Instructions ?Recorded amitriptyline 50 mg tablet 50 mg PO DAILY #90 tabs 12/07 cyclobenzaprine 10 mg tablet 10 mg PO TID PRN muscle s pasm #60 04/20/25 tabs omeprazole 20 mg capsule,delayed 20 mg PO DAILY #90 ca ps 04/20/25 release ropinirole 0.5 mg tablet 0.5 mg PO QHS #90 tabs 04/20 hydroxyzine HCl 50 mg tablet See Rx Instructions .Rout e 04/24/25 .COMPLEX #30 tabs lorazepam 1 mg tablet 1 mg PO BID PRN anxiety #30 tabs 05/02/25 Allergies Allergy/AdvReac Type Severity Reaction Status Date / Time No Known Allergies Allergy Verified 05/02/25 15:47 [facility] Disclaimer: The information contained in this section may have been updated after the patient was seen, as this information can be updated by other users. Medical History Personal history of nicotine dependence Encounter for screening for lung cancer Cerumen impaction Liver disease Erectile dysfunction Surgical History H/O uvulectomy History of tonsillectomy and adenoidectomy History of hernia surgery History of appendectomy Family History Other No significant family history Social History Smoking Status: Current every day smoker alcohol intake: current substance use type: other details: methadone, gabapentin current occupational status: unemployed Travel in the last 8 weeks?: None Have you lived/traveled outside US in past 30 days?: No Contact w/someone who lives/traveled outside US past 30 days?: No Exposure to someone with infectious disease in past 14 days?: No Do you have a fever (greater than 100.4 F or 38 C)?: No Have you tested positive for COVID-19?: No Exposed to someone with COVID-19 in past 14 days?: No Do you have a sore throat?: No Do you have a cough?: No Do you have any weakness?: No Do you have any diarrhea?: No Are you experiencing any unusual bleeding?: No Do you have any muscle aches/pain?: No Do you have any abdominal pain?: No Are you experiencing loss of taste or smell?: No Other Medical History Have you received the Pneumonia Vaccine: Yes ROS Obtained: Yes All systems reviewed & no additional complaints except as documented Physical Exam General General appearance: alert, anxious and cachectic Head Head exam: atraumatic and normocephalic Eye Eye exam: Present normal appearance, PERRL and EOMI (No ophthalmoplegia. Minimal nystagmus at extreme lateral gaze) ENT ENT exam: Present normal oropharynx and normal external ear exam Neck Neck exam: Present normal inspection, full ROM and tenderness (Midline cervical tenderness) Chest Chest inspection: Present normal inspection, symmetric chest wall rise and tenderness Respiratory Respiratory exam: Present normal lung sounds bilaterally; Absent respiratory distress Cardiovascular Cardiovascular exam: Present regular rate and normal rhythm Abdominal Exam Abdominal exam: Present soft; Absent distention, tenderness or guarding Rectal Exam Rectal exam: Present decreased rectal tone Extremities Exam Extremities exam: Present normal inspection; Absent edema or joint swelling Back Exam Back exam: Present normal inspection and tenderness (Midline thoracic and lumbar tenderness to palpate) Neurological Exam Neurological exam: Present alert, oriented X3, motor sensory deficit (0 out of 5 strength at the hip bilaterally. 3 out of 5 strength with plantar and dorsiflexion at the ankle bilaterally. Normal sensation of the lower extremities. No ataxia in the upper extremities, unable to perform exam of the lower extremities) and other (Confabulate stories that says are not true. Patient reports hearing things that are not there); Absent normal gait Psychiatric Psychiatric exam: Present anxious and other (Has had audio and visual hallucination) Skin Skin exam: Present warm, dry and normal color Lymphatic Lymphatic Findings: no adenopathy Medical Decision Making Medical Records Medical records reviewed: Yes I reviewed the patient's medical records. Screening: Per USPSTF and CDC recommendations, given the prevalence of disease in our region, it is our hospital?s policy to screen for HIV and viral Hepatitis for all patients aged 18 and over and those with ongoing risk factors. Joseph Inquiry Pt receiving controlled substance: No Joseph was queried for this patient: No Vital Signs: 05/11/25 23:59 05/12/25 01:53 05/12/25 03:06 Temperature 97.7 F 98.6 F Temperature Source Oral Tympanic Pulse Rate 79 78 Pulse Rate [Left] 92 H Respiratory Rate 16 18 18 Blood Pressure 114/82 114/82 Blood Pressure [Right Arm] 101/74 L Blood Pressure Mean [Right Arm] 83 Blood Pressure Source [Right Arm] Automatic Cuff Blood Pressure Position [Right Arm] Sitting 02 Sat by Pulse Oximetry 96 100 98 Oxygen Delivery Method Room Air Room Air Room Air 05/12/25 03:07 Temperature 98.6 F Temperature Source Pulse Rate 78 Pulse Rate [Left] Respiratory Rate 18 Blood Pressure 114/82 Blood Pressure [Right Arm] Blood Pressure Mean [Right Arm] Blood Pressure Source [Right Arm] Blood Pressure Position [Right Arm] 02 Sat by Pulse Oximetry Oxygen Delivery Method Room Air Lab Data Lab results reviewed: Yes I reviewed the patient's lab results. Lab Results 05/12/25 00:01: WBC 11.9 H, RBC 5.40, Hgb 16.7, Hct 47.9, MCV 88.7, MCH 30.9, MCHC 34.9, RDW 13.2, Plt Count 349, MPV 9.3, Neut % (Auto) 83.9 H, Lymph % (Auto) 11.1, [place] % (Auto) 4.2, Eos % (Auto) 0.1, Baso % (Auto) 0.3, Neut # (Auto) 10.0 H, Lymph # (Auto) 1.3, [place] # (Auto) 0.5, Eos # (Auto) 0.0, Baso # (Auto) 0.0, ESR 2, PT 10.6, INR 0.95, APTT 27.8, VBG pH 7.36, VBG pCO2 37.8, VBG pO2 26.4 L, VBG HCO3 20.7 L, VBG Total CO2 21.9 L, VBG O2 Saturation 51.7, VBG Base Excess -4.8 L, VBG Lactic Acid 3.5 H, Sodium 138, Potassium 4.0, Chloride 101, Carbon Dioxide 20 L, Anion Gap 21.0 H, BUN 9, Creatinine 0.90, Estimated Creat Clear 68, Estimated GFR 85, Est GFR ( Amer) 103, Glucose 128 H, Calcium 9.6, Phosphorus 4.8 H, Magnesium 2.0, Total Bilirubin 0.9, AST 32, ALT 21, Alkaline Phosphatase 160 H, Total Creatine Kinase 100, Troponin I < 0.01, C- Reactive Protein 22.1 H, NT-Pro-B Natriuret Pep 131 H, Total Protein 8.4 H D, Albumin 4.7, Globulin 3.7 H, Albumin/Globulin Ratio 1.3, TSH 1.74, Thyroxine (T4) 14.1 H, Salicylates < 1.0 L, Acetaminophen < 10 L, Plasma/Serum Alcohol < 10, Acetone Level None detected 05/12/25 01:30: Urine Color Yellow, Urine Appearance Clear, Urine pH 7.0, Ur Specific [place] <= 1.005, Urine Protein Negative, Urine Glucose (UA) Negative, Urine Ketones Negative, Urine Blood Negative, Urine Nitrate Negative, Urine Bilirubin Negative, Urine Urobilinogen 0.2, Ur Leukocyte Esterase Negative, Urine WBC Occasional, Ur Squamous Epith Cells Occasional, Urine Bacteria Trace, Urine Opiates Screen Negative, Urine Methadone Screen Negative, Ur Barbituates Screen Negative, Ur Phencyclidine Scrn Negative, Ur Amphetamines Screen Negative, U Benzodiazepines Scrn Negative, Urine Cocaine Screen Negative, U Marijuana (THC) Screen Negative 05/12/25 00:01 05/12/25 00:01 Orders (Tests/Meds): ED MEDICATIONS Discontinued Medications Generic Name Dose Route Start Last Admin Trade Name Larry SAWYER Reason Stop Dose Admin Folic Acid 1 mg 05/12/25 01:53 05/12/25 02:12 Folic Acid 1mg Tablet PO 05/12/25 01:54 1 mg DAILY ONE Administration Sodium Chloride 1,000 mls @ 999 mls/hr 05/12/25 00:30 05/12/25 02:14 Sod Chlor 0.9% 1000ml Bag IV 05/12/25 01:30 Infused .Q1H1M ANNETTE Infusion Iopamidol 170 ml 05/12/25 01:20 05/12/25 01:28 Iopamidol-370 (76%);100ml Bottle IV 05/12/25 01:21 170 ml ONCE ONE Administration Multivitamins 1 each 05/12/25 01:52 05/12/25 02:14 Multivitamin Tablet PO 05/12/25 01:53 Not Given ONCE ONE Sodium Chloride 10 ml 05/12/25 01:20 05/12/25 01:28 0.9 % Sodium Chloride 50 Ml Vial IV 05/12/25 01:21 10 ml ONCE ONE Administration Thiamine HCl 100 mg 05/12/25 01:52 05/12/25 02:12 Thiamine 100mg Tablet PO 05/12/25 01:53 100 mg ONCE ONE Administration ORDERS Category Date Time Status CT angio abd/pel - TRAUMA Stat Cat Scan 05/12/25 00:[address] angio chest - dissection Stat Cat Scan 05/12/25 00:[address] angio head Stat Cat Scan 05/12/25 00:[address] angio neck Stat Cat Scan 05/12/25 00:[address] cervical spine wo con Stat Cat Scan 05/12/25 00:[address] facial bones wo con Stat Cat Scan 05/12/25 00:[address] head/brain wo con Stat Cat Scan 05/12/25 00:[address] lumbar spine wo con Stat Cat Scan 05/12/25 00:[address] thoracic spine wo con Stat Cat Scan 05/12/25 00:18 Completed Acetaminophen Stat Lab 05/12/25 00:01 Completed Acetone, Serum (Rapid) Stat Lab 05/12/25 00:01 Completed BNP [NT Pro Brain Natriuretic Pep.] Stat Lab 05/12/25 00:01 Completed CBC w/Auto Diff [Complete Blood Count Auto Diff] Stat Lab 05/12/25 00:01 Completed CK [Creatine Kinase] Stat Lab 05/12/25 00:01 Completed CMP [Comprehensive Metabolic Panel] Stat Lab 05/12/25 00:01 Completed CRP [C-Reactive Protein] Stat Lab 05/12/25 00:01 Completed Diarrhea 23 Panel, PCR Stat Lab 05/12/25 00:17 Ordered ESR [Erythrocyte Sedimentation Rate] Stat Lab 05/12/25 00:01 Completed Ethanol [Ethyl Alcohol] Stat Lab 05/12/25 00:01 Completed INR [Prothrombin Time INR] Stat Lab 05/12/25 00:01 Completed Magnesium Stat Lab 05/12/25 00:01 Completed PTT [Activated Partial Thrombo Time] Stat Lab 05/12/25 00:01 Completed Phosphorous Stat Lab 05/12/25 00:01 Completed RPR W/RFX Titers Stat Lab 05/12/25 00:01 Received Salicylate Stat Lab 05/12/25 00:01 Completed T4 (Thyroxine) Stat Lab 05/12/25 00:01 Completed TSH [Thyroid Stimulating Hormone] Stat Lab 05/12/25 00:01 Completed Troponin I Q3H Lab 05/12/25 00:01 Completed Troponin I Q3H Lab 05/12/25 03:30 Ordered UA [Urinalysis and Microscopic] Stat Lab 05/12/25 01:30 Completed UDS [Drug Screen,Urine] Stat Lab 05/12/25 01:30 Completed Urine Chlam/Gono/Trich ([facility]) Stat Lab 05/12/25 01:30 Received Blood Culture Stat Micro 05/12/25 00:00 Received VBG [Venous Blood Gas] Stat RT 05/12/25 00:01 Completed ECG Data Tracing #1: I reviewed this ECG and interpreted as documented below: Extreme artifact markedly limits interpretation. Ventricular rate of approximately 80. Unable to interpret rhythm, though appears sinus. No obvious ST elevation. ECG initial impression date: 05/12/25 ECG initial impression time: 01:47 HEART Score History (anamnesis): Moderately suspicious ECG: Non-specific disturbance Age: 45-65 years Risk factors: 1-2 risk factors Troponin: </= normal limit HEART Score: 4 Medical Decision Narrative: 65-year-old male with history of chronic alcohol use and drug use, though reports he has been sober for at least a month from drugs and 9 months from alcohol, presents for multiple complaints including worsening confusion, confabulation and hallucinations over the last couple of days, worsening syncope with falls. Severe back pain after recent fall with weakness in the legs and bowel bladder changes. History was obtained via interactive discussion with patient, family, chart review. On arrival, patient is [afebrile, hemodynamically stable, satting appropriately, alert, oriented x4, GCS 15, but does confabulate and report thinks that did not happen according to his . Full physical exam performed and significant for findings as documented above. Decreased rectal tone, 0/5 strength at the hip bilaterally, 3/5 strength at the ankle bilaterally, normal sensation in the bilateral lower extremities, no ataxia in the upper extremities, no ophthalmoplegia. Patient was unable to void and when a Gardner was placed he had 1000 mL in his bladder. Differential includes but is not limited to cauda equina syndrome, Warnicke's Korsakoff, [employer] infection such as syphilis, intracranial lesion, trauma, cardiac syncope, vasovagal syncope, orthostasis, intoxication, withdrawal, psychosis. Patient was given 1 L IV fluid bolus, folic acid, B vitamins for symptomatic management and correction of underlying abnormalities. Workup initiated including full trauma scans, broad-spectrum labs. On re-evaluation, patient remains unchanged. Laboratory workup independently interpreted by me and significant for no significant electrolyte derangement, minimal leukocytosis, negative initial troponin. Lactate mildly elevated at 3.5, anion gap mildly elevated, no acidosis. Urinalysis without evidence of infection, tox labs negative Imaging independently interpreted by me and significant for no evidence of intracranial lesion, no spinal fracture or obvious compressive lesion, no obvious malignancy. See radiology read for full review of final results. The underlying etiology of patient presentation remains unclear. Given his bowel and bladder incontinence, diminished rectal tone and profound weakness in the lower extremities, I am most concerned about cauda equina/spinal cord pathology. This would not explain his hallucinations/confabulation nor his repeated syncope. There may multiple etiologies underlying his condition. I had an interactive discussion with [facility] regarding his presentation. He was accepted by Dr. Hall and transferred to the [facility]. Procedures Risk/Benefits of Procedure(s) Were Explained: Yes Critical Care Critical Care Time Critical Care Time: Yes Attestation: On 05/11/25, the high probability of a clinically significant, sudden or life threatening deterioration of the following system(s) required my full and direct attention, intervention and personal management. The time I documented below is in addition to time spent performing reported procedures but includes the following listed in this critical care notation. Total Time Total Critical Care Time: 70
[2025-05-12 00:45] LABS: Albumin Level 4.7 g/dl (3.5-5.0); Chloride 101 mmol/L (98-107); Sodium 138 mmol/L (136-145)
[2025-05-12 00:46] LABS: Potassium 4.0 mmoL/L (3.5-5.1)
[2025-05-12 00:48] LABS: Alanine Aminotransferase 21 U/L (12-78); Anion Gap 21.0 mEq/L (5-15); Aspartate Amino Transferase 32 U/L (17-59); Blood Urea Nitrogen 9 mg/dl (9-20); Carbon Dioxide 20 mmol/L (22.0-30.0); Creatinine Clearance Estimated 68 mL/min (50-200); Creatinine,Serum 0.90 mg/dl (0.66-1.25); Estimated Glomerular Filt Rate 85 ml/min (>60); GFR (African American) 103 ML/MIN (>60)
[2025-05-12 00:49] LABS: Albumin/Globulin Ratio 1.3 (1.1-1.8); Alkaline Phosphatase 160 U/L (38-126); Bilirubin,Total 0.9 mg/dl (0.2-1.3); Calcium 9.6 mg/dl (8.4-10.2); Creatine Kinase 100 U/L (55-170); Globulin 3.7 g/dL (1.3-3.2); Glucose 128 mg/dl (74-100); Magnesium 2.0 mg/dl (1.6-2.3); Phosphorous 4.8 mg/dl (2.5-4.5); Total Protein,Serum 8.4 g/dl (6.3-8.2)
[2025-05-12 00:54] LABS: Acetaminophen < 10 ug/ml (10-30); Activated Partial Thrombo Time 27.8 seconds (22.8-30.6); Salicylate < 1.0 mg/dL (2.0-20.0)
[2025-05-12 00:59] LABS: INR 0.95 (0.9-1.1); NT Pro Brain Natriuretic Pep. 131 pg/mL (0-125); Prothrombin Time 10.6 seconds (10.1-12.5)
[2025-05-12 01:06] LABS: T4 (Thyroxine) 14.1 ug/dl (5.53-11.0)
[2025-05-12 01:08] LABS: Troponin I < 0.01 ng/ml (0.00-0.034)
[2025-05-12] MEDS: IOPAMIDOL-370 (76%);100ML BOTTLE 170 ML IV (01:28)
[2025-05-12] MEDS: 0.9 % SODIUM CHLORIDE 50 ML VIAL 10 ML IV (01:28)
[2025-05-12 01:33] LABS: C-Reactive Protein 22.1 mg/L (0-4)
[2025-05-12 01:34] LABS: Microscopic, Urine URINE MICROSCOPIC (MICROSCOPIC)
[2025-05-12 01:34] LABS: Thyroid Stimulating Hormone 1.74 uIU/mL (0.465-4.68)
[2025-05-12 01:39] LABS: Bilirubin,Urine Negative (Negative); Color,Urine YELLOW (Yellow); Glucose,Urine (UA) Negative (Negative); Ketones,Urine Negative (Negative); Leukocyte Esterase,Urine Negative (Negative); PH,Urine 7.0 (5.0-8.5); Protein,Urine Negative (Negative); Specific Gravity, Urine <= 1.005 (1.005-1.030); Urobilinogen,Urine 0.2 EU/dl (0.2)
[2025-05-12 01:39] LABS: Acetone, Serum (Rapid) None Detected (None Detect)
--- NOTE | 2025-05-12 01:48 | ECG_ITS ---
APPROVED REPORT Exam: Resting ECG HR:78 bpm ECG Measurements Heart Rate 78 AXES QRSd 136 QRS 93 QT 439 T 95 QTc 473 Conclusion UNCERTAIN IRREGULAR RHYTHM marked artifact prevents interpretation UNCONFIRMED REPORT Electronically signed by : DANIA GRAJEDA, 05/13/2025 01:06:53
[2025-05-12 01:53] VITALS: BP 114/82; PULSE 79; RESP 18; O2SAT 100
[2025-05-12 01:54] LABS: Barbiturates Screen,Urine Negative ng/ml (<200)
[2025-05-12 01:56] LABS: Methadone Screen,Urine Negative ng/ml (<300); Opiate Screen,Urine Negative ng/ml (<300)
[2025-05-12 01:57] LABS: Phencyclidine Screen,Urine Negative ng/ml (<25)
[2025-05-12 01:59] LABS: Bacteria,Urine Trace /lpf; Squamous Epithelial Cell,Urine Occasional #/hpf (0-5); WBC,Urine Occasional #/hpf (0-3)
[2025-05-12 02:07] LABS: Amphetamine/Metha Screen,Urine Negative ng/ml (<1000)
[2025-05-12 02:08] LABS: Benzodiazepines Screen,Urine Negative ng/ml (<200)
[2025-05-12] MEDS: FOLIC ACID 1MG TABLET 1 MG PO (02:12)
[2025-05-12] MEDS: THIAMINE 100MG TABLET 100 MG PO (02:12)
[2025-05-12 03:06] VITALS: BP 114/82; PULSE 78; RESP 18; TEMP 37; O2SAT 98
[2025-05-12 03:07] VITALS: BP 114/82; PULSE 78; RESP 18; TEMP 37; O2SAT 98
[2025-05-13 07:36] LABS: RPR W/RFX Titers Nonreactive (Nonreactive)
== END 2025-05-12 03:55 | disposition other institution (70) ==
PROVIDERS: Emergency Provider Emergency Medicine; PCP Nurse Practitioner Family
DX: R32 Unspecified urinary incontinence (principal); R15.9 Full incontinence of feces; R44.2 Other hallucinations; R41.3 Other amnesia; M54.9 Dorsalgia, unspecified; R29.898 Other symptoms and signs involving the musculoskeletal system; F17.210 Nicotine dependence, cigarettes, uncomplicated; F10.11 Alcohol abuse, in remission; F11.11 Opioid abuse, in remission; R79.89 Other specified abnormal findings of blood chemistry; R79.82 Elevated C-reactive protein (CRP)
CPT/HCPCS: 51702; 70450; 70486; 70496; 70498; 71275; 72125; 72128; 72131; 74174; 80053; 80307; 80320; 80329; 81001; 82009; 82550; 82803; 83735; 83880; 84100; 84436; 84443; 84484; 85025; 85610; 85651; 85730; 86140; 86592; 87040; 87491; 87591; 87661; 93005; 96360; 99285; J7030; Q9967